=== PATIENT | female | born 1935 | race Hispanic/Latino ===

== ENCOUNTER 2017-07-05 10:14 | Inpatient (IN) | payer MEDICARE, OTHER ==
[~2017-07-05] VITALS: Ht 162.6 cm; Wt 63.5 kg
[~2017-07-05 10:14] MED LIST: ADVAIR 250-501 EACH; ADVAIR 250-501 EACH INH; ADVAIR 250-501 EACH PO; ALBUTEROL0.63 MG/3 NEB; ALENDRONATE SOD70 MG PEG; AMARYL4 MG PO; AMLODIPINE BESYL5 MG PO; ASPIR 8181 MG PO; ASPIRIN EC81 MG PO; AZITHROMYCIN250 MG PO; Albuterol Sulf NEB; BUDESONIDE0.5 MG/2 M NEB; CALCIUM CARBON500 MG PO; CEFDINIR300 MG PO; CIPRO500 MG PO; CLOTRIMAZOLE15 GM PO; COLACE100 M1 PO; DEXILANT60 MG PO; DRISDOL50000 UNIT PO; FLAGYL500 MG PO; GABAPENTIN300 MG PO; GLUCOTROL XL10 MG PO; HYDROCHLOROTHIA25 MG PO; IPRATROPIU0.2 MG/1 M NEB; LEVOCETIRIZINE D5 MG PO; LOSARTAN POTAS100 MG PO; LYRICA50 MG; LYRICA75 MG PO; MAGNESIUM OXID400 MG PO; METFORMIN HCL500 M2 PO; METFORMIN HCL500 MG PO; MIRTAZAPINE15 MG PO; NORVASC5 MG PO; OMEPRAZOLE40 MG PO; PEPCID40 MG PO; POTASSIUM CHLO20 ME1 PO; PRAMIPEXOLE DIHY1 MG PO; PRAVASTATIN SOD40 MG PO; ROPINIROLE HCL0.5 MG PO; SINEMET 25-1001 EACH PO; SODIUM CHLORIDE1 GM PO; SPIRIVA18 MCG INH; SYMBICORT 16010.2 GM; TAMIFLU75 MG PO; TEMAZEPAM15 MG PO; TRAMADOL-ACETAMI1 EA PO; TYLENOL PO; ULTRAM50 MG PO; VALERIAN ROOT100 MG PO; VENTOLIN INH; Z MIRAPEX PO; Z REQUIP PO; Z.0.AMLODIPINE BESYL PO; Z.0.DEXILANT60 MG PO; Z.0.LISINOPRIL10 MG; Z.0.LOSARTAN POTAS10 PO; Z.0.METOPROLOL SUCC5; Z.0.NEURONTIN300 MG PO; Z.0.SINGULAIR10 MG PO; Z.1.HYDROCHLOROTH12. PO; ZALEPLON10 MG PO; ZOFRAN ODT4 MG SL
[2017-07-05] MEDS ORDERED: IPRATROPIUM BROMIDE 0.02% 2.5 ML NEB NEB STA (10:15)
[2017-07-05] MEDS ORDERED: AZITHROMYCIN 500MG/NS 250 ML 250 ML IV SCH (10:15)
[2017-07-05] MEDS ORDERED: SODIUM CHLORIDE 0.9% 1000ML 1,000 ML IV STA (10:15)
[2017-07-05] MEDS ORDERED: PIPER-TAZ 3.375 GM 50 ML IV SCH (10:15)
[2017-07-05] MEDS ORDERED: METHYLPREDNISOLONE SOD SUCC 125 MG/2ML VIAL IV SCH (10:15)
[2017-07-05] MEDS ORDERED: ALBUTEROL SULF 0.083% NEB SOLN 3 ML NEB NEB STA (10:15)
--- OUTSIDE RECORDS SUMMARY | 2017-07-05 10:17 | XMS REPORT ---
Author Author [facility] Address Unknown Phone Unavailable Care Team Providers Care Relations Manager Name Role Phone JENNIFER SHINE Unavailable Unavailable Problems This patient has no known problems. Allergies, Adverse Reactions, Alerts This patient has no known allergies or adverse reactions. Medications This patient has no known medications. Results Test Description Test Time Test Comments Text Results Atomic Results Result Comments CHEST SINGLE (PORTABLE) [place] [address] Patient Name: SLOAN SANCHEZ MR #: [id number] : 1935 Age/Sex: 82/F Req #: [id number] Adm Physician: Ordered by: JENNIFER SHINE MD Report #: [id number] Location: ER Room/Bed: Procedure: [id number] DX/CHEST SINGLE (PORTABLE) Exam Date: 04/06/17 Exam Time: 1345 REPORT STATUS: Signed PROCEDURE: A single AP view of the chest. COMPARISON: [facility], , CHEST XRAY LINE PLACEMENT, 06/20/2016, 18:33. INDICATIONS: REACTION TO MEDICATION FINDINGS: Lines/tubes: None. Lungs: The lungs are well inflated and clear. There is no evidence of pneumonia or pulmonary edema. Pleura: There is no pleural effusion or pneumothorax. Heart and mediastinum: The heart and the mediastinum are unremarkable. Ossification of the aortic arch. Bones: No acute bony abnormality. IMPRESSION: 1. No acute cardiopulmonary disease. Luis Schaefer M.D. Dictated by: Luis Schaefer M.D. on 04/06/2017 at 14: 25 Electronically approved by: Luis Schaefer M.D. on 04/06/2017 at 14:25 Dictated By: AUNDREA SCHAEFER MD, MD 24 Transcribed By: DAWIT on 04/06 142 COPY TO: JENNIFER SHINE MD CT BRAIN WO [place] [address] Patient Name: SLOAN SANCHEZ MR #: [id number] : 1935 Age/Sex: 82/F Req #: [id number] Adm Physician: Ordered by: JENNIFER SHINE MD Report #: [id number] Location: ER Room/Bed: Procedure: [id number] CT/CT BRAIN WO Exam Date: Exam Time: REPORT STATUS: Signed EXAMINATION: Head CT HISTORY: Altered mental status, unresponsive COMPARISON: Head CT on 06/18/2016 TECHNIQUE: Multidetector axial images were obtained without contrast from the foramen magnum to the vertex . The images were reconstructed using brain and bone algorithms. Thin section brain images were reformatted into coronal and sagittal planes. Intravenous contrast: None. Motion/streaking artifact limits the evaluation of the skull base and posterior cranial fossa. FINDINGS: Parenchyma: 1. Unchanged mild chronic microvascular ischemic changes. 2. No mass or hemorrhage. No CT evidence of acute territorial vascular insult. Extra-axial spaces:No abnormal density. No extra-axial fluid collections Brain volume: Mild generalized brain volume loss Ventricles: No hydrocephalus or displacement. Arteries: No density suggestive of thrombus. Dural sinuses: No abnormal density. Extra-axial spaces : No abnormal density. Foramen magnum: No mass, Chiari malformation, or basilar invagination. Sella: No obvious mass. Paranasal/ mastoid sinuses: Minimal mucosal inflammatory thickening of the partially visualized maxillary sinuses Skull/Scalp: No lytic or blastic lesions. No fractures. IMPRESSION: 1. No acute intracranial hemorrhage or cortical infarct. 2. Unchanged mild chronic microvascular ischemic changes. 3. Stable mild generalized brain volume loss. Signed by: Dr. Riky Bush M.D. on 04/06/2017 2:30 PM Dictated By: RIKY BUSH MD 1430 Transcribed By: CECIL on 04/06/17 1430 COPY TO: JENNIFER SHINE MD
[2017-07-05] MEDS ORDERED: SODIUM CHLORIDE 0.9% 1000ML 1,000 ML IV SCH (10:22)
[2017-07-05] MEDS ORDERED: ALBUTEROL SULF 0.083% NEB SOLN 3 ML NEB NEB SCH (10:30)
[2017-07-05] MEDS ORDERED: ZOLPIDEM TARTRATE 10 MG TAB PO PRN (10:30)
[2017-07-05] MEDS ORDERED: DEXTROSE 50% SYRINGE 50 ML IV PRN (10:30)
[2017-07-05 10:38] LABS: BASOPHILS % 0.7 % (0.0-1.0); EOSINOPHILS # (AUTO) 0.1 (0.0-0.4); EOSINOPHILS % 1.7 % (0.0-6.0); HEMOGLOBIN 11.3 g/dL (12.0-16.0); LYMPHOCYTES # (AUTO) 1.7 (1.0-3.2); LYMPHOCYTES % 40.6 % (18.0-39.1); MEAN CORPUSCULAR HEMOGLOBIN 28.2 pg (28-32); MEAN CORPUSCULAR HGB CONC 34.2 g/dL (31-35); MEAN CORPUSCULAR VOLUME 82.3 fL (81-99); MONOCYTES # (AUTO) 0.4 (0.2-0.8); MONOCYTES % 10.5 % (4.4-11.3); NEUTROPHILS # (AUTO) 1.9 (2.1-6.9); NEUTROPHILS % 46.3 % (38.7-80.0); PLATELET COUNT 166 x10e3/uL (140-360); RED BLOOD COUNT 4.01 x10e6/uL (3.6-5.1); RED CELL DISTRIBUTION WIDTH 12.7 % (11.7-14.4)
[2017-07-05 10:48] LABS: INR 1.08; PARTIAL THROMBOPLASTIN TIME 27.6 seconds (23.8-35.5); PROTHROMBIN TIME 13.2 seconds (11.9-14.5)
[2017-07-05 10:56] LABS: ALANINE AMINOTRANSFERASE 30 IU/L (0-55); ALBUMIN 3.4 g/dL (3.5-5.0); ALBUMIN/GLOBULIN RATIO 0.9 (0.8-2.0); ALKALINE PHOSPHATASE 67 IU/L (40-150); ANION GAP 11.7 mmol/L (8-16); BLOOD UREA NITROGEN 16 mg/dL (7-26); BUN/CREATININE RATIO 22 (6-25); CALCIUM 8.8 mg/dL (8.4-10.2); CARBON DIOXIDE 23 mmol/L (22-29); CHLORIDE 99 mmol/L (98-107); CREATINE KINASE 825 IU/L (29-168); CREATININE, SERUM 0.73 mg/dL (0.57-1.11); EST GLOMERULAR FILTRATION RATE > 60 ML/MIN (60-); GLUCOSE 139 mg/dL (74-118); MAGNESIUM 1.7 MG/DL (1.3-2.1); POTASSIUM 3.7 mmol/L (3.5-5.1); SODIUM 130 mmol/L (136-145)
[2017-07-05 11:23] LABS: B-TYPE NATRIURETIC PEPTIDE2 46.6 pg/mL (0-100)
--- NOTE | 2017-07-05 11:29 | Diagnostic Imaging Report ---
PROCEDURE: Frontal and lateral views of the chest. COMPARISON: Portable chest 04/06/2017. INDICATIONS: SOB FINDINGS: Lines/tubes: None. Lungs: Bilateral perihilar opacifications. Low lung volumes are present bilaterally. No parenchymal mass. Pleura: There is no pleural effusion or pneumothorax. Heart and mediastinum: The heart and the mediastinum are normal. Atherosclerotic calcifications. Bones: No acute bony abnormality. Degenerative changes of the thoracic spine. IMPRESSION: Bilateral perihilar opacifications may represent pulmonary edema. Dictated by: Christos Robb M.D. on 07/05/2017 at 11:30 Electronically approved by: Christos Robb M.D. on 07/05/2017 at 11:30
[2017-07-05] MEDS ORDERED: ACETAMINOPHEN 325 MG TAB PO ONE (11:45)
[2017-07-05] MEDS ORDERED: IPRATROPIUM BROMIDE 0.02% 2.5 ML NEB NEB SCH (12:00)
[2017-07-05 12:16] LABS: BAND NEUTROPHILS % (MANUAL) 1 %; BLAST CELLS % MANUAL 1; EOSINOPHILS % (MANUAL) 2 % (0-7); LYMPHOCYTES % (MANUAL) 36 % (19-48); MONOCYTES % (MANUAL) 6 % (3.4-9.0); MYELOCYTES % (MANUAL) 1 % (0-0); NEUTROPHILS % (MANUAL) 48 % (40-74)
[2017-07-05 12:18] LABS: ANISOCYTOSIS SLIGHT; PLATELET ESTIMATE ADEQUATE; PLATELET MORPHOLOGY COMMENT NORMAL; RBC MORPHOLOGY COMMENT NORMAL
[2017-07-05] MEDS ORDERED: TRAMADOL HCL 50 MG TAB PO PRN (12:45)
[2017-07-05] MEDS ORDERED: FUROSEMIDE INJ 10 MG/ML 2 ML VIAL IV ONE (13:00)
[2017-07-05] MEDS: PIPER-TAZ 3.375 GM 100 ML IV SCH ×3 (13:21→22:50)
[2017-07-05] MEDS: INSULIN REGULAR, HUMAN 100 UNIT/1 ML 3ML VIAL SQ SCH ×3 (13:51→21:00)
--- NOTE | 2017-07-05 13:53 | Diagnostic Imaging Report ---
EXAMINATION: Head CT HISTORY: Altered mental status, evaluate for intracranial bleed COMPARISON: Head CT on 04/06/2017 TECHNIQUE: Multidetector axial images were obtained without contrast from the foramen magnum to the vertex . The images were reconstructed using brain and bone algorithms. Thin section brain images were reformatted into coronal and sagittal planes. Intravenous contrast: None. Motion/streaking artifact limits the evaluation of the skull base and posterior cranial fossa. FINDINGS: Parenchyma: 1. Unchanged mild chronic microvascular ischemic changes.. 2. No mass or hemorrhage. No CT evidence of acute territorial vascular insult. Extra-axial spaces:No abnormal density. No extra-axial fluid collections Brain volume: Age-appropriate moderate generalized volume loss. Ventricles: No hydrocephalus or displacement. Arteries: No density suggestive of thrombus. Dural sinuses: No abnormal density. Extra-axial spaces: No abnormal density. Foramen magnum: No mass, Chiari malformation, or basilar invagination. Sella: No obvious mass. Paranasal/mastoid sinuses: Minimal mucosal inflammatory thickening of the partially visualized paranasal sinuses. Skull/Scalp: No lytic or blastic lesions. No fractures. IMPRESSION: 1. No intracranial hemorrhage. 2. Stable mild chronic microvascular ischemic changes. Signed by: Dr. Patti Bush M.D. on 07/05/2017 1:50 PM
[2017-07-05 14:46] LABS: ABG HCO3 22 mmol/L (23-28); ABG PCO2 33 mmHg (41-51); ABG PH 7.42 (7.31-7.41); ABG PO2 68 mmHg (80-105)
[2017-07-05] MEDS ORDERED: OYST-CAL-D 500MG TABLET PO SCH (15:00)
[2017-07-05] MEDS: OYST-CAL-D 500MG TABLET PO SCH ×2 (16:14→21:00)
[2017-07-05] MEDS ORDERED: FUROSEMIDE INJ 10 MG/ML 4 ML VIAL ONE (16:21)
[2017-07-05] MEDS ORDERED: SALMETEROL/FLUTICASONE 250/50 INH SCH (17:00)
[2017-07-05] MEDS ORDERED: GABAPENTIN 300 MG CAP PO SCH (17:00)
[2017-07-05] MEDS: DOCUSATE SODIUM 100 MG CAP PO SCH (17:01)
[2017-07-05 17:29] VITALS: BP 141/65
[2017-07-05 17:35] VITALS: BP 141/65
[2017-07-05 18:37] LABS: CREATINE KINASE 666 IU/L (29-168)
[2017-07-05] MEDS: SALMETEROL/FLUTICASONE 250/50 INH SCH (19:00)
[2017-07-05] MEDS: BUDESONIDE 0.5MG/2 ML NEB NEB SCH (19:45)
[2017-07-05 20:15] VITALS: BP 158/69
[2017-07-05] MEDS: PRAVASTATIN 20 MG TAB PO SCH ×2 (21:00→22:51)
[2017-07-05] MEDS ORDERED: NON-FORMULARY MEDICATION (Pravastatin Sodium 1 TAB) PO SCH (21:00)
[2017-07-06] VITALS (7 sets, daily range): BP systolic 147–165; BP diastolic 66–80
[2017-07-06 04:16] LABS: CREATINE KINASE 588 IU/L (29-168)
[2017-07-06] MEDS ORDERED: SODIUM CHLORIDE 0.9% 250ML 250 ML ONE (05:39)
[2017-07-06] MEDS: PIPER-TAZ 3.375 GM 100 ML IV SCH (05:50)
[2017-07-06 06:08] LABS: BASOPHILS % 0.7 % (0.0-1.0); EOSINOPHILS # (AUTO) 0.1 (0.0-0.4); EOSINOPHILS % 1.6 % (0.0-6.0); HEMOGLOBIN 10.6 g/dL (12.0-16.0); LYMPHOCYTES % 43.7 % (18.0-39.1); MEAN CORPUSCULAR HEMOGLOBIN 28.5 pg (28-32); MEAN CORPUSCULAR HGB CONC 33.1 g/dL (31-35); MONOCYTES # (AUTO) 0.5 (0.2-0.8); MONOCYTES % 10.5 % (4.4-11.3); NEUTROPHILS # (AUTO) 1.9 (2.1-6.9); NEUTROPHILS % 43.3 % (38.7-80.0); PLATELET COUNT 170 x10e3/uL (140-360); RED BLOOD COUNT 3.72 x10e6/uL (3.6-5.1); RED CELL DISTRIBUTION WIDTH 12.9 % (11.7-14.4)
[2017-07-06 06:30] LABS: ALANINE AMINOTRANSFERASE 29 IU/L (0-55); ALBUMIN 3.3 g/dL (3.5-5.0); ALBUMIN/GLOBULIN RATIO 1.1 (0.8-2.0); ALKALINE PHOSPHATASE 59 IU/L (40-150); ANION GAP 12.6 mmol/L (8-16); BLOOD UREA NITROGEN 11 mg/dL (7-26); BUN/CREATININE RATIO 16 (6-25); CALCIUM 8.6 mg/dL (8.4-10.2); CARBON DIOXIDE 25 mmol/L (22-29); CHLORIDE 104 mmol/L (98-107); EST GLOMERULAR FILTRATION RATE > 60 ML/MIN (60-); GLUCOSE 92 mg/dL (74-118); POTASSIUM 3.6 mmol/L (3.5-5.1); SODIUM 138 mmol/L (136-145)
[2017-07-06] MEDS: INSULIN REGULAR, HUMAN 100 UNIT/1 ML 3ML VIAL SQ SCH ×4 (07:30→20:53)
[2017-07-06] MEDS: TIOTROPIUM 18 MCG INH POWDER INH SCH ×2 (08:20→19:20)
[2017-07-06] MEDS: BUDESONIDE 0.5MG/2 ML NEB NEB SCH ×2 (08:20→19:20)
[2017-07-06 08:29] LABS: LYMPHOCYTES % (MANUAL) 42 % (19-48); MONOCYTES % (MANUAL) 9 % (3.4-9.0); NEUTROPHILS % (MANUAL) 45 % (40-74)
[2017-07-06 08:30] LABS: ANISOCYTOSIS SLIGHT; HYPOCHROMASIA SLIGHT; PLATELET ESTIMATE ADEQUATE; PLATELET MORPHOLOGY COMMENT NORMAL; POIKILOCYTOSIS SLIGHT; RBC MORPHOLOGY COMMENT NORMAL
--- NOTE | 2017-07-06 09:02 | History and Physical ---
CHIEF COMPLAINT: Dyspnea and congestion. HISTORY OF PRESENT ILLNESS: The patient is an 82-year-old woman. She has a history of severe COPD. She uses inhalers at home. She uses oxygen at home. She also has Parkinson disease and restless legs syndrome. She takes Sinemet and Mirapex at home as well. She complains of fever for the past 1 to 2 days. She has worsening dyspnea and congestion. It was not relieved with bronchodilators, steroids and antibiotics as an outpatient. PAST MEDICAL HISTORY 1. COPD. 2. Parkinson disease. 3. Restless legs syndrome. 4. Hypertension. PAST SURGICAL HISTORY 1. Status post ventral hernia repair. 2. Status post left hip surgery. 3. Hysterectomy. FAMILY HISTORY: There is a history of hypertension and diabetes in the family. SOCIAL HISTORY: The patient stays at home. She has help from her family. She is not a smoker or drinker. REVIEW OF SYSTEMS: The patient does not have any fever. There is no headache. The patient is not having any sore throat. There is no chest pain. She does have dyspnea and congestion. She does not complain of abdominal pain. She notes frequent leg movements and some restlessness. PHYSICAL EXAMINATION VITALS: The patient is afebrile. The vital signs are stable. HEENT: No facial swelling or erythema. The nasal mucosa is normal. The oropharynx is normal. LYMPHATIC: No submandibular, cervical or supraclavicular adenopathy. CARDIAC: Regular rate and rhythm with a normal S1 and S2. There are no murmurs or rubs. LUNGS: Auscultation of the lungs reveals prolonged expiratory phase. There is wheezing. ABDOMEN: Soft and nontender. There is no rebound or guarding. EXTREMITIES: No leg edema or calf tenderness. There is no cyanosis or clubbing. SKIN: No rashes. NEUROLOGIC: No focal abnormalities. IMPRESSION 1. Chronic obstructive pulmonary disease with acute exacerbation. 2. Fever. 3. Parkinson disease. 4. Restless legs syndrome. PLAN 1. Solu-Medrol and antibiotics. 2. Bronchodilators. 3. Continue current parkinsonian regimen. Consult neurology. 4. Physical therapy. LAYO GUPTA MD Job#: [id number] MH
[2017-07-06] MEDS: AZITHROMYCIN 500MG/NS 250 ML 250 ML IV SCH (09:52)
[2017-07-06] MEDS: PRAMIPEXOLE DIHYDROCHLORIDE 1 MG TAB PO SCH (09:53)
[2017-07-06] MEDS: DOCUSATE SODIUM 100 MG CAP PO SCH ×2 (09:53→17:00)
[2017-07-06] MEDS: ASPIRIN 81 MG CHEW TAB PO SCH (09:53)
[2017-07-06] MEDS: LOSARTAN POTASSIUM 100 MG TAB PO SCH (09:53)
[2017-07-06] MEDS: CARBIDOPA/LEVODOPA 25/100 TAB PO SCH ×3 (09:53→20:52)
[2017-07-06] MEDS: PANTOPRAZOLE SOD 40 MG TABEC PO SCH (09:53)
[2017-07-06] MEDS: OYST-CAL-D 500MG TABLET PO SCH ×3 (09:53→20:52)
[2017-07-06] MEDS: MIRTAZAPINE 15 MG TAB PO SCH (09:53)
[2017-07-06] MEDS: ROPINIROLE HCL 0.25 MG TAB PO SCH ×2 (09:53→17:00)
[2017-07-06] MEDS: AMLODIPINE BESYLATE 5 MG TAB PO SCH (09:53)
[2017-07-06] MEDS ORDERED: METHYLPREDNISOLONE SOD SUCC 40 MG/ML VIAL ONE ×2 (10:21→10:29)
[2017-07-06] MEDS: METHYLPREDNISOLONE SOD SUCC 40 MG/ML VIAL IV SCH ×2 (10:29→20:52)
--- NOTE | 2017-07-06 18:03 | Consultation ---
DATE OF CONSULTATION: July 06, 2017, at approximately 5 o'clock in the evening. NEUROLOGICAL CONSULTATION A patient of Dr. Martin Mchugh. REASON FOR CONSULTATION: History of Parkinson. HISTORY OF PRESENT ILLNESS: This 82-year-old female is well known to me from previous admission. Patient was admitted because of coughing, febrile illness, shortness of breath. She was brought to the emergency room and admitted with a diagnosis of pneumonia. She has history of COPD, Parkinson disease, restless legs syndrome, hypertension. She has history of post left knee surgery, hysterectomy, and ventral hernia. SOCIAL HISTORY: The patient lives with the family. She does not smoke or drink. LIST OF MEDICATION: She has been on carbidopa-levodopa 25/100 three times a day and Requip (ropinirole) 0.5 mg twice a day for the restless legs syndrome and also for Parkinson's. ALLERGIES: NONE KNOWN. REVIEW OF SYSTEMS: All 12 steps negative except what is described above. PHYSICAL EXAMINATION VITAL SIGNS: Blood pressure today is 164/73, pulse 87, temperature 93.7. GENERAL: The patient states she is feeling much better. LUNGS: Still bilateral rales and wheezing. HEART: Regular sinus rhythm. ABDOMEN: Soft. No tenderness. No organomegaly. MUSCULOSKELETAL: Lower extremities no edema, no cyanosis, no clubbing. NEUROLOGIC Mental status: Normal. Speech clear, no dysarthria or dysphagia. Cranial nerves: Pupils were both equal and reactive. External ocular movements were full. Visual field was normal. No facial weakness. Tongue protrudes midline. Palatal movements normal. Motor power: Patient is sitting comfortably. We see a fine resting tremor in both hands, a little more on the right side, 4-6 Hz, which is absent during postural holding. There is no evidence of muscle wasting. No weakness in either proximal or distal muscles of either or both upper or lower extremities. Deep tendon reflexes: Triceps, biceps, radials 1+. Knee jerks 1+. Ankle jerks were absent bilaterally. Plantar stimulation is down bilaterally. HEAD: Normocephalic. NECK: Supple. Carotid pulsations were present bilaterally. There were no bruits. GAIT: Deferred. LABORATORY WORKUP: CBC shows a white count 4400 with a hemoglobin 10.3, hematocrit 32, platelets 170,000. Chemistry: Sodium 138, potassium 3.6, BUN 11, creatinine 0.70, estimated GFR greater than 60, blood sugar 195. Liver enzymes: The AST is slightly elevated. Chest x-ray: Bilateral perihilar opacification may represent pulmonary edema. They did a CT scan of the head without contrast in the emergency room. There is intracranial pathology. Still mild chronic microvascular ischemic changes bilaterally. IMPRESSION 1. Parkinson disease without complications. 2. Restless legs syndrome. 3. Chronic obstructive pulmonary disease. 4. Hypertension. RECOMMENDATION: Continue with carbidopa-levodopa 25/100 and the Requip 0.5 mg twice a day. He seems to be quite stable with the above medication. Will follow closely. Job#: [id number] EV
[2017-07-06] MEDS: SALMETEROL/FLUTICASONE 250/50 INH SCH (19:20)
[2017-07-06] MEDS: IPRATROPIUM BROMIDE 0.02% 2.5 ML NEB NEB PRN (19:20)
[2017-07-06] MEDS: ALBUTEROL SULF 0.083% NEB SOLN 3 ML NEB NEB PRN (19:20)
[2017-07-06] MEDS: FUROSEMIDE INJ 10 MG/ML 4 ML VIAL IV SCH (20:52)
[2017-07-07 00:44] VITALS: BP 149/69
[2017-07-07 06:17] VITALS: BP 136/63
[2017-07-07 06:57] LABS: BASOPHILS % 0.3 % (0.0-1.0); LYMPHOCYTES # (AUTO) 1.3 (1.0-3.2); LYMPHOCYTES % 39.2 % (18.0-39.1); MEAN CORPUSCULAR HEMOGLOBIN 28.5 pg (28-32); MEAN CORPUSCULAR HGB CONC 34.9 g/dL (31-35); MEAN CORPUSCULAR VOLUME 81.8 fL (81-99); MONOCYTES # (AUTO) 0.2 (0.2-0.8); MONOCYTES % 7.2 % (4.4-11.3); NEUTROPHILS # (AUTO) 1.7 (2.1-6.9); NEUTROPHILS % 52.7 % (38.7-80.0); PLATELET COUNT 217 x10e3/uL (140-360); RED BLOOD COUNT 4.28 x10e6/uL (3.6-5.1); RED CELL DISTRIBUTION WIDTH 12.6 % (11.7-14.4)
[2017-07-07 07:08] LABS: HEMOGLOBIN 12.2 g/dL (12.0-16.0)
[2017-07-07 07:13] LABS: MAGNESIUM 1.6 MG/DL (1.3-2.1)
[2017-07-07 07:19] LABS: ALANINE AMINOTRANSFERASE 25 IU/L (0-55); ALBUMIN 3.5 g/dL (3.5-5.0); ALBUMIN/GLOBULIN RATIO 0.8 (0.8-2.0); ALKALINE PHOSPHATASE 69 IU/L (40-150); ANION GAP 14.6 mmol/L (8-16); BLOOD UREA NITROGEN 11 mg/dL (7-26); BUN/CREATININE RATIO 14 (6-25); CALCIUM 9.3 mg/dL (8.4-10.2); CARBON DIOXIDE 24 mmol/L (22-29); CHLORIDE 98 mmol/L (98-107); CREATININE, SERUM 0.78 mg/dL (0.57-1.11); EST GLOMERULAR FILTRATION RATE > 60 ML/MIN (60-); GLUCOSE 249 mg/dL (74-118); POTASSIUM 3.6 mmol/L (3.5-5.1); SODIUM 133 mmol/L (136-145)
[2017-07-07] MEDS: IPRATROPIUM BROMIDE 0.02% 2.5 ML NEB NEB PRN ×3 (07:20→19:15)
[2017-07-07] MEDS: BUDESONIDE 0.5MG/2 ML NEB NEB SCH ×2 (07:20→19:15)
[2017-07-07] MEDS: ALBUTEROL SULF 0.083% NEB SOLN 3 ML NEB NEB PRN ×3 (07:20→19:15)
[2017-07-07 07:34] LABS: FERRITIN 55.09 ng/mL (4.63-204.00)
[2017-07-07] MEDS: SALMETEROL/FLUTICASONE 250/50 INH SCH ×2 (07:40→19:15)
[2017-07-07 08:00] VITALS: BP 171/74
[2017-07-07] MEDS: TIOTROPIUM 18 MCG INH POWDER INH SCH ×2 (08:01→19:15)
[2017-07-07] MEDS: ASPIRIN 81 MG CHEW TAB PO SCH (10:11)
[2017-07-07] MEDS: DOCUSATE SODIUM 100 MG CAP PO SCH ×2 (10:11→17:25)
[2017-07-07] MEDS: FUROSEMIDE INJ 10 MG/ML 4 ML VIAL IV SCH (10:11)
[2017-07-07] MEDS: AZITHROMYCIN 500MG/NS 250 ML 250 ML IV SCH (10:11)
[2017-07-07] MEDS: METHYLPREDNISOLONE SOD SUCC 40 MG/ML VIAL IV SCH ×2 (10:11→22:05)
[2017-07-07] MEDS: CARBIDOPA/LEVODOPA 25/100 TAB PO SCH ×3 (10:12→22:05)
[2017-07-07] MEDS: MIRTAZAPINE 15 MG TAB PO SCH (10:12)
[2017-07-07] MEDS: PANTOPRAZOLE SOD 40 MG TABEC PO SCH (10:12)
[2017-07-07] MEDS: ROPINIROLE HCL 0.25 MG TAB PO SCH ×2 (10:12→17:25)
[2017-07-07] MEDS: LOSARTAN POTASSIUM 100 MG TAB PO SCH (10:12)
[2017-07-07] MEDS: AMLODIPINE BESYLATE 5 MG TAB PO SCH (10:12)
[2017-07-07] MEDS: OYST-CAL-D 500MG TABLET PO SCH ×3 (10:12→22:05)
[2017-07-07] MEDS: PRAMIPEXOLE DIHYDROCHLORIDE 1 MG TAB PO SCH (10:12)
[2017-07-07] MEDS: INSULIN REGULAR, HUMAN 100 UNIT/1 ML 3ML VIAL SQ SCH ×4 (10:13→22:05)
[2017-07-07 10:27] LABS: ANISOCYTOSIS SLIGHT; LYMPHOCYTES % (MANUAL) 28 % (19-48); MONOCYTES % (MANUAL) 7 % (3.4-9.0); NEUTROPHILS % (MANUAL) 57 % (40-74); PLATELET ESTIMATE ADEQUATE; PLATELET MORPHOLOGY COMMENT FEW GIANT; RBC MORPHOLOGY COMMENT NORMAL
[2017-07-07 12:00] VITALS: BP 152/91
[2017-07-07] MEDS ORDERED: LORAZEPAM 0.5 MG TAB PO ONE ×2 (14:00→17:30)
[2017-07-07 16:00] VITALS: BP 125/60
--- NOTE | 2017-07-07 18:56 | Progress Note ---
DATE: July 07, 2017 NEUROLOGICAL PROGRESS NOTE A patient of Dr. Sergey Torres. DIAGNOSIS 1. Parkinson disease without complication. 2. Restless legs syndrome. 3. Chronic obstructive pulmonary disease. 4. Pneumonia. 5. Hypertension. MEDICATION: She has been on carbidopa-levodopa 25/100 three times a day and Requip 0.5 mg 3 times a day. Parkinson and the restless legs seem to be under control, the Parkinson's resting tremor of 4-6 Hz mild to moderate intensity. Patient is able to do all her daily living activities. At the present time she is feeling better with the pneumonia and possibility she is going to be discharged tomorrow. Vital signs were stable. Job#: [id number] EV
[2017-07-07 20:00] VITALS: BP 138/60
[2017-07-08] VITALS: BP 134/46
[2017-07-08 04:55] VITALS: BP 139/73
[2017-07-08 06:34] LABS: HEMATOCRIT 34.2 % (34.2-44.1); HEMOGLOBIN 11.4 g/dL (12.0-16.0); LYMPHOCYTES % 19.2 % (18.0-39.1); MEAN CORPUSCULAR HGB CONC 33.3 g/dL (31-35); MONOCYTES # (AUTO) 0.2 (0.2-0.8); MONOCYTES % 3.3 % (4.4-11.3); NEUTROPHILS # (AUTO) 3.9 (2.1-6.9); NEUTROPHILS % 77.1 % (38.7-80.0); PLATELET COUNT 238 x10e3/uL (140-360); RED BLOOD COUNT 4.07 x10e6/uL (3.6-5.1); RED CELL DISTRIBUTION WIDTH 12.6 % (11.7-14.4)
[2017-07-08 06:56] LABS: ALANINE AMINOTRANSFERASE 25 IU/L (0-55); ALBUMIN 3.6 g/dL (3.5-5.0); ALBUMIN/GLOBULIN RATIO 0.9 (0.8-2.0); ALKALINE PHOSPHATASE 62 IU/L (40-150); ANION GAP 15.7 mmol/L (8-16); BLOOD UREA NITROGEN 17 mg/dL (7-26); BUN/CREATININE RATIO 22 (6-25); CALCIUM 9.4 mg/dL (8.4-10.2); CARBON DIOXIDE 22 mmol/L (22-29); CHLORIDE 98 mmol/L (98-107); CREATININE, SERUM 0.77 mg/dL (0.57-1.11); EST GLOMERULAR FILTRATION RATE > 60 ML/MIN (60-); GLUCOSE 153 mg/dL (74-118); POTASSIUM 3.7 mmol/L (3.5-5.1); SODIUM 132 mmol/L (136-145)
[2017-07-08] MEDS: SALMETEROL/FLUTICASONE 250/50 INH SCH (07:15)
[2017-07-08] MEDS: ALBUTEROL SULF 0.083% NEB SOLN 3 ML NEB NEB PRN (07:15)
[2017-07-08] MEDS: IPRATROPIUM BROMIDE 0.02% 2.5 ML NEB NEB PRN (07:15)
[2017-07-08] MEDS: BUDESONIDE 0.5MG/2 ML NEB NEB SCH (07:15)
[2017-07-08 08:00] VITALS: BP 168/74
[2017-07-08] MEDS: TIOTROPIUM 18 MCG INH POWDER INH SCH (08:48)
[2017-07-08] MEDS ORDERED: FUROSEMIDE INJ 10 MG/ML 4 ML VIAL IV SCH (09:00)
[2017-07-08] MEDS: PANTOPRAZOLE SOD 40 MG TABEC PO SCH (10:05)
[2017-07-08] MEDS: ASPIRIN 81 MG CHEW TAB PO SCH (10:05)
[2017-07-08] MEDS: DOCUSATE SODIUM 100 MG CAP PO SCH (10:05)
[2017-07-08] MEDS: LOSARTAN POTASSIUM 100 MG TAB PO SCH (10:05)
[2017-07-08] MEDS: AZITHROMYCIN 500MG/NS 250 ML 250 ML IV SCH (10:05)
[2017-07-08] MEDS: PRAMIPEXOLE DIHYDROCHLORIDE 1 MG TAB PO SCH (10:05)
[2017-07-08] MEDS: METHYLPREDNISOLONE SOD SUCC 40 MG/ML VIAL IV SCH (10:05)
[2017-07-08] MEDS: OYST-CAL-D 500MG TABLET PO SCH (10:05)
[2017-07-08] MEDS: AMLODIPINE BESYLATE 5 MG TAB PO SCH (10:05)
[2017-07-08] MEDS: CARBIDOPA/LEVODOPA 25/100 TAB PO SCH (10:06)
[2017-07-08] MEDS: ROPINIROLE HCL 0.25 MG TAB PO SCH (10:06)
[2017-07-08] MEDS: MIRTAZAPINE 15 MG TAB PO SCH (10:06)
[2017-07-08] MEDS: INSULIN REGULAR, HUMAN 100 UNIT/1 ML 3ML VIAL SQ SCH (10:26)
== END 2017-07-08 11:35 | disposition home or self-care (01) | DRG 190 ==
LOC: ER 10:14 → EDBEDREQ 11:00 → ERHOLD 11:47 → MED/SURG2 15:59
PROVIDERS: ATTEND Internal Medicine Critical Care Medicine
DX: J44.1 Chronic obstructive pulmonary disease with (acute) exacerbation (principal); J15.9 Unspecified bacterial pneumonia; G25.81 Restless legs syndrome; G20 Parkinson's disease; I10 Essential (primary) hypertension
CPT/HCPCS: 36415; 36600; 51700; 70450; 71046; 80053; 82550; 82553; 82728; 82805; 82948; 83605; 83735; 83880; 84484; 85025; 85379; 85610; 85730; 87040; 87400; 93005; 94640; 96360; 99284; J0456; J1940; J2543; J2920; J7030; J7050

== ENCOUNTER 2018-06-26 18:51 | Emergency (ER) | payer MEDICARE, OTHER ==
[~2018-06-26] VITALS: Ht 162.6 cm; Wt 63.5 kg
[2018-06-26] MEDS ORDERED: ALBUTEROL/IPRATROPIUM 3 ML NEB NEB ONE ×2 (19:15→23:15)
--- NOTE | 2018-06-26 19:42 | Diagnostic Imaging Report ---
EXAMINATION: CHEST 2 VIEWS INDICATION: Shortness of breath ^SOB ^[id number] ^[id number] COMPARISON: 06/18/2016 FINDINGS: TUBES and LINES: None. LUNGS: Lungs are well inflated. Lungs are clear. There is no evidence of pneumonia or pulmonary edema. PLEURA: No pleural effusion or pneumothorax. HEART AND MEDIASTINUM: The cardiomediastinal silhouette is unremarkable. Atherosclerotic calcifications of the aortic arch. BONES AND SOFT TISSUES: No acute osseous lesion. Soft tissues are unremarkable. UPPER ABDOMEN: No free air under the diaphragm. IMPRESSION: No acute thoracic abnormality. Signed by: Dr. Alejandro Arambula M.D. on 06/26/2018 7:39 PM
[2018-06-26 19:46] LABS: BASOPHILS # (AUTO) 0.1 (0.0-0.1); BASOPHILS % 0.9 % (0.0-1.0); EOSINOPHILS # (AUTO) 0.1 (0.0-0.4); EOSINOPHILS % 2.2 % (0.0-6.0); HEMATOCRIT 34.2 % (34.2-44.1); LYMPHOCYTES # (AUTO) 2.1 (1.0-3.2); LYMPHOCYTES % 37.6 % (18.0-39.1); MEAN CORPUSCULAR HEMOGLOBIN 28.3 pg (28-32); MEAN CORPUSCULAR HGB CONC 32.2 g/dL (31-35); MEAN CORPUSCULAR VOLUME 87.9 fL (81-99); MONOCYTES # (AUTO) 0.5 (0.2-0.8); MONOCYTES % 8.2 % (4.4-11.3); NEUTROPHILS # (AUTO) 2.8 (2.1-6.9); NEUTROPHILS % 50.7 % (38.7-80.0); PLATELET COUNT 212 x10e3/uL (140-360); RED BLOOD COUNT 3.89 x10e6/uL (3.6-5.1); RED CELL DISTRIBUTION WIDTH 13.1 % (11.7-14.4)
[2018-06-26 19:53] LABS: INR 0.88; PROTHROMBIN TIME 12.4 seconds (11.9-14.5)
[2018-06-26 19:54] LABS: PARTIAL THROMBOPLASTIN TIME 27.8 seconds (23.8-35.5)
[2018-06-26 20:06] LABS: ALANINE AMINOTRANSFERASE 19 IU/L (0-55); ALBUMIN 3.8 g/dL (3.5-5.0); ALBUMIN/GLOBULIN RATIO 1.1 (0.8-2.0); ALKALINE PHOSPHATASE 87 IU/L (40-150); ANION GAP 14.6 mmol/L (8-16); BLOOD UREA NITROGEN 18 mg/dL (7-26); BUN/CREATININE RATIO 20 (6-25); CALCIUM 9.9 mg/dL (8.4-10.2); CARBON DIOXIDE 25 mmol/L (22-29); CHLORIDE 100 mmol/L (98-107); CREATINE KINASE 233 IU/L (29-168); CREATININE, SERUM 0.89 mg/dL (0.57-1.11); EST GLOMERULAR FILTRATION RATE > 60 ML/MIN (60-); GLUCOSE 213 mg/dL (74-118); POTASSIUM 3.6 mmol/L (3.5-5.1); SODIUM 136 mmol/L (136-145)
[2018-06-26] MEDS ORDERED: ACETAMINOPHEN 325 MG TAB PO ONE (23:15)
[2018-06-26 23:55] VITALS: BP 138/57
== END 2018-06-27 00:02 | disposition home or self-care (01) ==
LOC: ER 18:51
DX: J30.1 Allergic rhinitis due to pollen (principal); I10 Essential (primary) hypertension; E11.9 Type 2 diabetes mellitus without complications; J44.9 Chronic obstructive pulmonary disease, unspecified; I25.10 Atherosclerotic heart disease of native coronary artery without angina pectoris; K21.9 Gastro-esophageal reflux disease without esophagitis; E78.00 Pure hypercholesterolemia, unspecified; G47.30 Sleep apnea, unspecified; I25.2 Old myocardial infarction; Z79.84 Long term (current) use of oral hypoglycemic drugs; Z79.82 Long term (current) use of aspirin
CPT/HCPCS: 36415; 71046; 80053; 82550; 82553; 83880; 84484; 85025; 85610; 85730; 93005; 94640; 99283

== ENCOUNTER → 2018-08-17 | Day surgery (SDC) | payer MEDICARE, OTHER ==
[2018-08-15 10:17] LABS: BASOPHILS # (AUTO) 0.1 (0.0-0.1); EOSINOPHILS # (AUTO) 0.2 (0.0-0.4); EOSINOPHILS % 3.7 % (0.0-6.0); HEMATOCRIT 34.1 % (34.2-44.1); HEMOGLOBIN 11.1 g/dL (12.0-16.0); LYMPHOCYTES # (AUTO) 1.9 (1.0-3.2); LYMPHOCYTES % 30.7 % (18.0-39.1); MEAN CORPUSCULAR HEMOGLOBIN 27.3 pg (28-32); MEAN CORPUSCULAR HGB CONC 32.6 g/dL (31-35); MEAN CORPUSCULAR VOLUME 83.8 fL (81-99); MONOCYTES # (AUTO) 0.7 (0.2-0.8); MONOCYTES % 10.6 % (4.4-11.3); NEUTROPHILS # (AUTO) 3.4 (2.1-6.9); NEUTROPHILS % 53.7 % (38.7-80.0); PLATELET COUNT 208 x10e3/uL (140-360); RED BLOOD COUNT 4.07 x10e6/uL (3.6-5.1); RED CELL DISTRIBUTION WIDTH 13.2 % (11.7-14.4)
[2018-08-15 10:26] LABS: INR 0.95; PROTHROMBIN TIME 13.2 seconds (11.9-14.5)
[2018-08-15 10:33] LABS: ALANINE AMINOTRANSFERASE 26 IU/L (0-55); ALBUMIN 3.8 g/dL (3.5-5.0); ALBUMIN/GLOBULIN RATIO 1.1 (0.8-2.0); ALKALINE PHOSPHATASE 96 IU/L (40-150); ANION GAP 11.5 mmol/L (8-16); BLOOD UREA NITROGEN 31 mg/dL (7-26); BUN/CREATININE RATIO 37 (6-25); CALCIUM 9.4 mg/dL (8.4-10.2); CARBON DIOXIDE 27 mmol/L (22-29); CHLORIDE 96 mmol/L (98-107); CREATININE, SERUM 0.83 mg/dL (0.57-1.11); EST GLOMERULAR FILTRATION RATE > 60 ML/MIN (60-); GLUCOSE 167 mg/dL (74-118); POTASSIUM 3.5 mmol/L (3.5-5.1); SODIUM 131 mmol/L (136-145)
--- NOTE | 2018-08-15 10:47 | Diagnostic Imaging Report ---
EXAMINATION: PA and lateral views of the chest. COMPARISON: 06/26/2018 CLINICAL HISTORY: Preoperative study for heart catheterization DISCUSSION: Lungs are well-inflated and without focal consolidation, pleural effusion, or pneumothorax. Mild prominence of the pulmonary interstitium likely reflects age-related fibrotic change. Tortuous thoracic aorta with atherosclerotic calcification. Normal heart size. No acute osseous abnormality. IMPRESSION: No acute cardiopulmonary abnormalities. Signed by: Dr. Matty Zhang M.D. on 08/15/2018 10:43 AM
[~2018-08-17] VITALS: Ht 162.6 cm; Wt 63.5 kg
[2018-08-17] VITALS (10 sets, daily range): BP systolic 109–141; BP diastolic 44–77
[~2018-08-17] MED LIST changes: -ALENDRONATE SOD70 MG PEG; +ALENDRONATE SOD70 MG PO; +ARICEPT5 MG PO; +FENTANYL CITRATE/PF 100MCG/2 ML INJ ONE; +FUROSEMIDE40 MG PO; +HEPARIN SOD (PORCINE) 1000 UNIT/ML 30ML ONE; +HEPARIN SOD/SOD CHLORIDE 2,000 ML ONE; +HYDROCHLOROTH12.5 MG PO; +IOPAMIDOL 370 MG/ML 200 ML INFUS..BTL INJ ONE; +LIDOCAINE HCL 2% LOCAL 20 ML VIAL ONE; +LORAZEPAM0.5 MG PO; +METOPROLOL TART25 MG PO; +MIDAZOLAM HCL 2 MG/2 ML VIAL ONE; +MYRBETRIQ25 MG PO; +NITROGLYCERIN/D5W 200 MCG/ML 250 ML ONE; +POTASSIUM CHLO10 ME1 PO; +SODIUM CHLORIDE 0.9% 1000ML 1,000 ML ONE; +VERAPAMIL HCL 2.5 MG/ML 2 ML VIAL ONE
--- NOTE | 2018-08-17 08:10 | NUR ---
0810am Received pt from [facility] report from Saurabh Puckett.Identifierx2 .No fix. [facility] Dr Mchugh.Rt TR band failed approach. Rt Mynx closure intact.No hematoma or bleeding. Denies CP or SOB No gross issues pain pallor pressure or dysrhythmia Daughter here Franc[place] daughter Reviewed POC and has copies.Patient back to baseline orientation. Respiration shallow and regular. Abdomen soft and non tender. Denies Necessity to defecate or urinate. Bilateral femoral pulses present Left iv infusing at 100cchr NO s/s infiltration. Ok to reduce air TR band at 905am for potential dc at 105 Family at bedside, assisting with po intake.No gross issues pain pallor pressure or dysthymia. ds/ray
--- OUTSIDE RECORDS SUMMARY | 2018-08-17 09:47 | XMS REPORT | Continuity of Care Document ---
Author Author [facility] Interface Address Unknown Phone Unavailable Problems Problem Status Onset Date Classification Date Reported Comments Source Diabetes Active 10/26/2015 Problem 06/27/[address] [facility] Diarrhea Active 10/26/2015 Problem 06/27/[address] [facility] Hypokalemia Active 10/26/2015 Problem 06/27/[address] [facility] Vomiting Active 10/26/2015 Problem 06/27/[address] [facility] Abdominal pain Active 07/17/2015 Problem 06/27/[address] [facility] Fever Active 07/17/2015 Problem 06/27/[address] [facility] Hyponatremia Active 07/17/2015 Problem 06/27/[address] [facility] Weakness Active 07/17/2015 Problem 06/27/[address] [facility] Pneumonia Active 02/23/2014 Problem 06/27/[address] [facility] Reactive airway disease Active 02/23/2014 Problem 06/27/[address] [facility] Bronchitis Active Problem 06/27/[address] [facility] COPD exacerbation Active Problem 06/27/[address] [facility] Dehydration Active Problem 06/27/[address] [facility] Medications Medication Details Route Status Patient Instructions Ordering Provider Order Date Source Temazepam 15 Mg Capsule, 15 Mg Oral Bedtime Active 04/10/[address] [facility] Zaleplon 10 Mg Capsule, 10 Mg Oral Bedtime Active 04/10/[address] [facility] Docusate Sodium (Colace) 100 Mg Capsule Twice A Day Active [place] 04/09/[address] [facility] Gabapentin 300 Mg Capsule Twice A Day Active [place] 04/09/[address] [facility] Gabapentin 300 Mg Capsule, 300 Mg Oral Daily Active 04/09/[address] [facility] Hydrochlorothiazide 25 Mg Tablet, 12.5 Mg Oral Daily Active 04/09/[address] [facility] Dexlansoprazole (Dexilant) 60 Mg Cap., 60 Mg Oral Daily Active 04/06/[address] [facility] Glimepiride (Amaryl) 4 Mg Tablet, 4 Mg Oral Twice A Day Active 04/06/[address] [facility] Losartan Potassium 100 Mg Tablet, 100 Mg Oral Daily Active 04/06/[address] [facility] Ergocalciferol (Drisdol) 50,000 Unit Cap, 61406 Units Oral Weekly Active 06/18/[address] [facility] Pregabalin (Lyrica) 75 Mg Cap, 100 Mg Oral Twice A Day Active 06/18/[address] [facility] Temazepam 15 Mg Capsule, 15 Mg Oral Bedtime as needed for Insomnia Active 06/18/[address] [facility] Azithromycin (Z-Shmuel) 250 Mg Tablet, 250 Mg Oral Use As Directed Active 04/05/[address] [facility] Albuterol (Ventolin-Hfa) 8 Gm Aers, 8 Gm Inhalation As Needed Active 02/06/[address] [facility] Aspirin (Aspirin Ec) 81 Mg Tablet., 81 Mg Oral Daily Active 02/06/[address] [facility] Budesonide/Formoterol Fumarate (Symbicort 160-4.5 Mcg Inhaler) 10.2 Gm Hfa.aer.ad, Active 02/06/[address] [facility] Cefdinir (Omnicef) 300 Mg Capsule, 300 Mg Oral Every 12 Hours Active 02/06/[address] [facility] Fluticasone/Salmeterol (Advair 250-50 Diskus) 1 Each Disk.w.dev, 1 Inh Inhalation Twice A Day Active 02/06/[address] [facility] Montelukast Sodium (Singulair) 10 Mg Tablet, 10 Mg Oral Bedtime Active 02/06/[address] [facility] Ondansetron (Zofran Odt) 4 Mg Tab.rapdis, 4 Mg Sublingual Every 4 Hours as needed for Nausea Active 02/06/[address] [facility] Ropinirole Hcl 0.5 Mg Tablet, 1.5 Mg Oral Bedtime Active 02/06/[address] [facility] Tramadol/Acetaminophen (Tramadol-Acetaminophn 37.5-325) 1 Ea Tab, 37.5325 Mg Oral As Needed Active 02/06/[address] [facility] Budesonide 0.5 Mg/2 Ml Ampul.neb, 2 Ml Nebullizer Active 12/16/[address] [facility] Dexlansoprazole (Dexilant) 60 Mg Cap., 60 Mg Oral Daily Active 12/16/[address] [facility] Famotidine (Pepcid) 40 Mg Tablet, 40 Mg Oral Daily Active 12/16/[address] [facility] Fluticasone/Salmeterol (Advair 250-50 Diskus) 1 Each Disk.w.dev, Active 12/16/[address] [facility] Glipizide (Glucotrol Xl) 10 Mg Tab.er.24, 5 Mg Oral Daily Active 12/16/[address] [facility] Losartan Potassium 100 Mg Tablet, 100 Mg Oral Daily Active 12/16/[address] [facility] Metformin Hcl 500 Mg Tablet, 500 Mg Oral Twice A Day Active 12/16/[address] [facility] Pravastatin Sodium 40 Mg Tablet, 40 Mg Oral Bedtime Active 12/16/[address] [facility] Pregabalin (Lyrica) 50 Mg Cap, 100 Mg Twice A Day Active 12/16/[address] [facility] Temazepam 15 Mg Capsule, 15 Mg Oral Bedtime as needed for Sleep Active 12/16/[address] [facility] Tiotropium [place] (Spiriva) 18 Mcg Cap.w.dev, 18 Mcg Inhalation Daily Active 12/16/[address] [facility] Albuterol Sulf 3 Ml Neb, 3 Ml Nebullizer Rt Q6h Active [place] 10/29/[address] [facility] Ciprofloxacin Hcl (Cipro) 500 Mg Tablet, 500 Mg Oral Twice A Day Active [place] 10/29/[address] [facility] Magnesium Oxide 400 Mg Tablet, 400 Mg Oral Four Times Daily Active [place] 10/29/[address] [facility] Metronidazole (Flagyl) 500 Mg Tablet, 500 Mg Oral Three Times A Day Active [place] 10/29/[address] [facility] Hydrochlorothiazide 25 Mg Tablet, 12.5 Mg Oral Daily Active 07/19/[address] [facility] Amlodipine Besylate (Norvasc) 5 Mg Tab, 5 Mg Oral Daily Active 02/14/[address] [facility] Carbidopa/Levodopa (Sinemet 25-100 Mg Tablet) 1 Each Tablet, 1 Tab Oral Three Times Daily With Meals Active 02/14/[address] [facility] Pramipexole Di-Hcl (Mirapex) 0.5 Mg Tablet, 0.5 Mg Oral Bedtime Active 02/14/[address] [facility] Amlodipine Besylate 5 Mg Tablet, 10 Mg Oral Daily Active 03/03/[address] [facility] Losartan Potassium 100 Mg Tablet, 100 Mg Oral Daily Active 03/03/[address] [facility] Oseltamivir Phosphate (Tamiflu) 75 Mg Cap, 1 Tab Oral Twice A Day Active 03/03/[address] [facility] Gabapentin (Neurontin) 300 Mg Capsule, 300 Mg Oral Twice A Day Active 10/12/[address] [facility] Hydrochlorothiazide 12.5 Mg Tablet, 12.5 Mg Oral Daily Active 10/12/[address] [facility] Lisinopril 10 Mg Tablet, Daily Active 05/13/[address] [facility] Metoprolol Succinate 50 Mg Tab.sr.24h, Twice A Day Active 05/13/[address] [facility] Albuterol Sulfate 0.63 Mg/3 Ml Vial.neb Every [address] [facility] Alendronate Sodium 70 Mg Tablet Daily Active [facility] Amlodipine Besylate 5 Mg Tablet Daily Active [facility] Aspirin (Aspir 81) 81 Mg Tablet. Daily Active [facility] Budesonide 0.5 Mg/2 Ml Ampul.[place] Active [facility] Calcium Carbonate 500 Mg Tablet Three Times A Day Active [facility] Clotrimazole 15 Gm Cream..g. Three Times A Day Active [facility] Fluticasone/Salmeterol (Advair 250-50 Diskus) 1 Each Disk.w.dev Active [facility] Ipratropium [place] 0.2 Mg/1 Ml Solution [address] [facility] Levocetirizine Dihydrochloride 5 Mg Tablet Bedtime Active [facility] Losartan Potassium 100 Mg Tablet Daily Active [facility] Metformin Hcl (Metformin Hcl Er) 500 Mg Tab.er.24 Twice A Day Active [facility] Mirtazapine 15 Mg Tab Daily Active [facility] Omeprazole 40 Mg Capsule. Daily Active [facility] Pramipexole Di-Hcl (Pramipexole Dihydrochloride) 1 Mg Tablet Daily Active 1 TAB PO IN THE MORNING AND 2 TABS AT BEDTIME [facility] Pravastatin Sodium 40 Mg Tablet Bedtime Active [facility] Tiotropium [place] (Spiriva) 18 Mcg Cap.w.dev Twice A Day Active BID PRN [facility] Tramadol Hcl (Ultram) 50 Mg Tablet Twice A Day Active [facility] Tylenol Every [address] [facility] Valerian Root 100 Mg Capsule Bedtime Active [facility] Allergies, Adverse Reactions, Alerts Substance Category Reaction Severity Reaction type Status Date Reported Comments Source Iodinated Contrast- Oral and IV Dye HIVES Intermediate Allergy to Substance Active 07/17/[address] [facility] Immunizations Immunization Date Given Site Status Last Updated Comments Source Results Order Name Results Value Reference Range Date Interpretation Comments Source Blood leukocytes automated count (number/volume) 5.58 4.8 - 10.8 06/26/[address] [facility] Blood erythrocytes automated count (number/volume) 3.89 3.6 - 5.1 06/26/[address] [facility] Blood hemoglobin measurement (moles/volume) 11.0 12.0 - 16.0 06/26/[address] [facility] Automated blood hematocrit (volume fraction) 34.2 34.2 - 44.1 06/26/[address] [facility] Automated erythrocyte mean corpuscular volume 87.9 81 - 99 06/26/[address] [facility] Automated erythrocyte mean corpuscular hemoglobin (mass per erythrocyte) 28.3 28 - 32 06/26/[address] [facility] Automated erythrocyte mean corpuscular hemoglobin concentration measurement (mass/volume) 32.2 31 - 35 06/26/[address] [facility] RDW BldCo-Rto 13.1 11.7 - 14.4 06/26/[address] [facility] Automated blood platelet count (count/volume) 212 140 - 360 06/26/[address] [facility] Automated blood segmented neutrophil count as percentage of total leukocytes 50.7 38.7 - 80.0 06/26/[address] [facility] Automated blood lymphocyte count as percentage ot total leukocytes 37.6 18.0 - 39.1 06/26/[address] [facility] Automated blood monocyte count as percentage of total leukocytes 8.2 4.4 - 11.3 06/26/[address] [facility] Automated blood eosinophil count as percentage of total leukocytes 2.2 0.0 - 6.0 06/26/[address] [facility] Automated blood basophil count as percentage of total leukocytes 0.9 0.0 - 1.0 06/26/[address] [facility] IM GRANULOCYTES % 0.4 0.0 - 1.0 06/26/[address] [facility] Automated blood neutrophil count 2.8 2.1 - 6.9 06/26/[address] [facility] Blood lymphocytes count (number/volume) 2.1 1.0 - 3.2 06/26/[address] [facility] Blood monocytes automated count (number/volume) 0.5 0.2 - 0.8 06/26/[address] [facility] Automated blood eosinophil count 0.1 0.0 - 0.4 06/26/[address] [facility] Automated blood basophil count (count/volume) 0.1 0.0 - 0.1 06/26/[address] [facility] Absolute Immature Granulocyte (auto 0.02 0 - 0.1 06/26/[address] [facility] Prothrombin time (PT) in platelet poor plasma by coagulation assay 12.4 11.9 - 14.5 06/26/[address] [facility] INR in Platelet poor plasma by Coagulation assay 0.88 06/26/[address] [facility] Activated partial thromboplastin time (aPTT) in platelet poor plasma bycoagulation assay 27.8 23.8 - 35.5 06/26/[address] [facility] Serum or plasma sodium measurement (moles/volume) 136 136 - 145 06/26/[address] [facility] Serum or plasma potassium measurement (moles/volume) 3.6 3.5 - 5.1 06/26/[address] [facility] Serum or plasma chloride measurement (moles/volume) 100 98 - 107 06/26/[address] [facility] Serum or plasma carbon dioxide, total measurement (moles/volume) 25 22 - 29 06/26/[address] [facility] Serum or plasma anion gap 14.6 8 - 16 06/26/[address] [facility] Serum or plasma urea nitrogen measurement (mass/volume) 18 7 - 26 06/26/[address] [facility] Serum or plasma creatinine measurement (mass/volume) 0.89 0.57 - 1.11 06/26/[address] [facility] Serum or plasma urea nitrogen/creatinine mass ratio 20 6 - 25 06/26/[address] [facility] Estimated glomerular filtration rate (GFR) determination > 60 60 06/26/[address] [facility] Glucose measurement 213 74 - 118 06/26/[address] [facility] Serum or plasma calcium measurement (mass/volume) 9.9 8.4 - 10.2 06/26/[address] [facility] Serum or plasma total bilirubin measurement (mass/volume) 0.5 0.2 - 1.2 06/26/[address] [facility] Aspartate Amino Transf (AST/SGOT) 24 5 - 34 06/26/[address] [facility] Serum or plasma alanine aminotransferase measurement (enzymatic activity/volume) 19 0 - 55 06/26/[address] [facility] Serum or plasma protein measurement (mass/volume) 7.4 6.5 - 8.1 06/26/[address] [facility] Serum or plasma albumin measurement (mass/volume) 3.8 3.5 - 5.0 06/26/[address] [facility] Plasma globulin measurement (mass/volume) 3.6 2.3 - 3.5 06/26/[address] [facility] Serum or plasma albumin/globulin mass ratio 1.1 0.8 - 2.0 06/26/[address] [facility] Serum or plasma alkaline phosphatase measurement (enzymatic activity/volume) 87 40 - 150 06/26/[address] [facility] BNP Bld-mCnc 184.8 0 - 100 06/26/[address] [facility] Serum or plasma creatine kinase measurement (enzymatic activity/volume) 233 29 - 168 06/26/[address] [facility] Serum or plasma creatine kinase MB measurement (mass/volume) 3.90 0 - 5.0 06/26/[address] [facility] Troponin I measurement by highly sensitive enzyme immunoassay 0.008 0 - 0.300 06/26/[address] [facility] Vital Signs Vital Sign Value Date Comments Source Encounters Location Location Details Encounter Type Encounter Number Reason For Visit Attending Provider ADM Date DC Date Status Source Departed Emergency Room [id number] CUCO PAYNE MD 06/26/2018 06/27/[address] [facility] Procedures Procedure Code Date Perfomer Comments Source X-ray of chest, two views [id number] 06/26/2018 [facility]
--- NOTE | 2018-08-17 10:05 | NUR ---
1005am Stable TR band site RT radial air removed. 2x2 dressing and Tegaderm with Coban dressing adequate vascular neuro function. Splint intact.Reviewed POC with family has copy of dc plans. 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 Escorted with [facility] [facility] employee. jackson/rn
--- NOTE | 2018-08-17 15:58 | Operative Report ---
DATE OF PROCEDURE: SURGEON: Matty Mchugh MD PROCEDURE: Left heart catheterization. INDICATION: Chest pain and angina. COMPLICATIONS: None. ANESTHESIA: Versed, fentanyl and lidocaine. TECHNIQUE: As follows; the right groin was draped and prepped in the usual fashion. The area was anesthetized with lidocaine. Standard Seldinger technique was used to place a 6-Wolof sheath into the right femoral artery without difficulty. A JL4 catheter was used to selectively engage the left coronary artery. A 3DRC catheter was used to selectively engage the right coronary artery. A pigtail catheter was used to perform a left ventriculogram. A Mynx device was used for closure. There were no complications. RESULTS: As follows: 1. Normal left main trunk. 2. There is a large left anterior descending artery, which had calcification and gave rise to a medium-sized diagonal branch with minimal disease in the left anterior descending artery system. 3. There was a medium-sized size AV circumflex artery which gave rise to a large bifurcating obtuse marginal branch. There was minimal disease in the circumflex system. 4. There was a large dominant right coronary artery with some calcification, but minimal disease. There was normal left ventricular size and function with an ejection fraction of 60%. There was no gradient across the aortic valve. CONCLUSION: Calcification of the coronary arteries with minimal stenosis, some mild atherosclerotic disease. Matty Mchugh MD DSH/MODL /[id number] cc: Carlos Claudio MD
== END | disposition home or self-care (01) ==
LOC: CATH LAB 06:08
PROVIDERS: ATTEND Internal Medicine Cardiovascular Disease
DX: I25.119 Atherosclerotic heart disease of native coronary artery with unspecified angina pectoris (principal); I10 Essential (primary) hypertension; E11.9 Type 2 diabetes mellitus without complications; Z01.812 Encounter for preprocedural laboratory examination; Z01.818 Encounter for other preprocedural examination; Z79.82 Long term (current) use of aspirin
CPT/HCPCS: 36415; 71046; 80053; 85025; 85610; 85730; 93458; C1760; C1769 ×2; C1887; J1644; J2001; J2250; J7030; Q9967

== ENCOUNTER 2018-08-20 15:12 | Observation (INO) | payer MEDICARE, OTHER ==
[~2018-08-20] VITALS: Ht 162.6 cm; Wt 66.4 kg
[~2018-08-20 15:12] MED LIST changes: -FENTANYL CITRATE/PF 100MCG/2 ML INJ ONE; -HEPARIN SOD (PORCINE) 1000 UNIT/ML 30ML ONE; -HEPARIN SOD/SOD CHLORIDE 2,000 ML ONE; -IOPAMIDOL 370 MG/ML 200 ML INFUS..BTL INJ ONE; -LIDOCAINE HCL 2% LOCAL 20 ML VIAL ONE; -MIDAZOLAM HCL 2 MG/2 ML VIAL ONE; -NITROGLYCERIN/D5W 200 MCG/ML 250 ML ONE; -SODIUM CHLORIDE 0.9% 1000ML 1,000 ML ONE; -VERAPAMIL HCL 2.5 MG/ML 2 ML VIAL ONE
[2018-08-20 18:04] LABS: BASOPHILS % 0.5 % (0.0-1.0); EOSINOPHILS # (AUTO) 0.2 (0.0-0.4); EOSINOPHILS % 2.6 % (0.0-6.0); HEMOGLOBIN 7.2 g/dL (12.0-16.0); LYMPHOCYTES % 33.1 % (18.0-39.1); MEAN CORPUSCULAR HEMOGLOBIN 27.7 pg (28-32); MEAN CORPUSCULAR HGB CONC 33.2 g/dL (31-35); MEAN CORPUSCULAR VOLUME 83.5 fL (81-99); MONOCYTES # (AUTO) 0.7 (0.2-0.8); MONOCYTES % 10.8 % (4.4-11.3); NEUTROPHILS # (AUTO) 3.2 (2.1-6.9); PLATELET COUNT 196 x10e3/uL (140-360); RED CELL DISTRIBUTION WIDTH 13.6 % (11.7-14.4)
[2018-08-20 18:09] LABS: HEMATOCRIT 21.7 % (34.2-44.1)
[2018-08-20 18:14] LABS: INR 0.91; PROTHROMBIN TIME 12.7 seconds (11.9-14.5)
[2018-08-20] MEDS ORDERED: SODIUM CHLORIDE 0.9% 250ML 250 ML IV ONE (18:15)
[2018-08-20 18:18] LABS: ANION GAP 11.5 mmol/L (8-16); BLOOD UREA NITROGEN 36 mg/dL (7-26); BUN/CREATININE RATIO 41 (6-25); CALCIUM 9.1 mg/dL (8.4-10.2); CARBON DIOXIDE 29 mmol/L (22-29); CHLORIDE 97 mmol/L (98-107); CREATININE, SERUM 0.87 mg/dL (0.57-1.11); EST GLOMERULAR FILTRATION RATE > 60 ML/MIN (60-); GLUCOSE 169 mg/dL (74-118); POTASSIUM 3.5 mmol/L (3.5-5.1); SODIUM 134 mmol/L (136-145)
[2018-08-20] MEDS ORDERED: METHYLPREDNISOLONE SOD SUCC 125 MG/2ML VIAL IV ONE (18:30)
[2018-08-20] MEDS ORDERED: DIPHENHYDRAMINE HCL INJ 50 MG/ML VIAL IV ONE (18:30)
[2018-08-20] MEDS ORDERED: LORAZEPAM 0.5 MG TAB PO PRN (19:15)
[2018-08-20] MEDS ORDERED: ONDANSETRON HCL INJ 2MG/ML 2ML 2 MG/ML VIAL IV PRN (19:30)
[2018-08-20] MEDS ORDERED: MORPHINE SULFATE INJ 4 MG/ML INJ 1ML IV PRN (19:30)
[2018-08-20] MEDS ORDERED: SODIUM CHLORIDE FLUSH 10 ML SYR INJ PRN (19:30)
[2018-08-20] MEDS ORDERED: MORPHINE SULFATE 2 MG/ML SYR 1ML IV PRN (19:30)
--- NOTE | 2018-08-20 19:43 | Diagnostic Imaging Report ---
EXAM: CT ABDOMEN/PELVIS WO DATE: 08/20/2018 6:46 PM INDICATION: Leg swelling, rule out retroperitoneal hematoma COMPARISON: None TECHNIQUE: The abdomen and pelvis were scanned using a multidetector helical scanner. Coronal and sagittal reformations were obtained. CT low dose techniques were utilized, as applicable. IV Contrast: 0 ml Isovue 300/370 FINDINGS: Lack of IV contrast decreases sensitivity in evaluating abdominal and pelvic organs. LOWER THORAX: No consolidations. Calcified granuloma in the left sulcus. LIVER/BILIARY: No masses. No ductal dilatation. GALLBLADDER: Unremarkable SPLEEN: Unremarkable PANCREAS: Unremarkable ADRENALS: No nodules KIDNEYS: No stones. No hydronephrosis. GI TRACT: No wall thickening or evidence of obstruction. VESSELS: Unremarkable PERITONEUM/RETROPERITONEUM: No free air or fluid. No hemorrhage. LYMPH NODES: No lymphadenopathy REPRODUCTIVE ORGANS/BLADDER: Unremarkable SOFT TISSUES: Extensive fat stranding around the right hip girdle and anterior thigh. 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 Rods and fixation of the right femur partially visualized. IMPRESSION: 1. No retroperitoneal hematoma. 2. Probable intramuscular hematoma partially visualized, between the sartorius and vastus musculature. Further imaging with ultrasound or dedicated CT may be considered to assess the extent. 3. 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 Signed by: Fantasma Heart MD on 08/20/2018 7:39 PM
[2018-08-20 22:02] VITALS: BP 134/61
--- NOTE | 2018-08-20 22:36 | NUR ---
SPOKE TO [facility] WITH DR. PADILLA; ADMIT PT TO MED SURG
[2018-08-21] VITALS (10 sets, daily range): BP systolic 120–210; BP diastolic 46–92
[2018-08-21] MEDS ORDERED: SODIUM CHLORIDE 0.9% 250ML 250 ML ONE (00:28)
--- NOTE | 2018-08-21 01:28 | Consultation ---
DATE OF CONSULTATION: Cardiology Consultation CHIEF COMPLAINT: The patient is an 83-year-old with right groin hematoma. HISTORY OF PRESENT ILLNESS: The patient is an 83-year-old, who had a cardiac catheterization done last weekend, which demonstrated minimal coronary artery disease. The patient was at home yesterday when she got up to go to the bathroom and then strained and started developing some pain in her groin. The patient's right thigh started to swell and became black and blue. The patient came to the emergency room. The patient was noted to have a hemoglobin down to 7.2. The patient has had no chest pain. No nausea. No vomiting. No shortness of breath. PAST MEDICAL HISTORY: Significant for: 1. Diabetes mellitus. 2. Chronic pain syndrome. 3. Hypertension. MEDICATIONS: At home include Aricept, furosemide, hydrochlorothiazide, losartan, metformin, metoprolol, and pravastatin. SOCIAL HISTORY: The patient does not drink, does not smoke. The patient lives at home with the family. PHYSICAL EXAMINATION: GENERAL: The patient is an older female, in no obvious distress. VITAL SIGNS: Included temperature of 97.9, blood pressure of 143/62. HEAD, EARS, EYES, NOSE AND THROAT: The patient's cranium was normocephalic and atraumatic. Extraocular muscles were intact. Sclerae anicteric. Pupils were equal, round, and reactive to light. There was no pallor or cyanosis of the oral mucosa. There is no erythema or edema of the throat. NECK: Supple. No jugular venous distention. No carotid bruits. CHEST: Clear to auscultation and percussion. CARDIAC: Demonstrated normal S1 and S2 with a short 2/6 systolic murmur. ABDOMEN: Demonstrated good bowel sounds. No tenderness and no masses. EXTREMITIES: The patient did have a large hematoma of the right thigh. The pulse was palpable. The femoral pulse was 2 to 3+. NEUROLOGIC: The patient was alert and oriented x3. Cranial nerves II through XII were intact. Motor strength was 5+/5 in all limbs. IMAGING STUDIES: The patient's EKG demonstrated normal sinus rhythm with some nonspecific ST-T and T wave changes. IMPRESSION: The patient is an 83-year-old with groin hematoma after cardiac catheterization last week. RECOMMENDATIONS: Are as follows: 1. The patient will need to be admitted for observation. 2. The patient will need to be transfused with 2 units of packed red blood cells. 3. The patient will require a CT scan to exclude a retroperitoneal hematoma. MD SHERRY Leigh/MODL /[id number] cc: Carlos Claudio MD
--- NOTE | 2018-08-21 07:00 | NUR ---
BEDSIDE SHIFT REPORT DONE WITH SUPERVISOR P[employer] RO[employer] RN. PT DENIES NEEDS AT THIS TIME.
[2018-08-21] MEDS ORDERED: ALBUTEROL SULF 0.083% NEB SOLN 3 ML NEB NEB PRN (07:45)
[2018-08-21 08:13] LABS: BASOPHILS % 0.3 % (0.0-1.0); EOSINOPHILS # (AUTO) 0.1 (0.0-0.4); EOSINOPHILS % 1.9 % (0.0-6.0); HEMATOCRIT 29.6 % (34.2-44.1); HEMOGLOBIN 9.9 g/dL (12.0-16.0); LYMPHOCYTES # (AUTO) 1.6 (1.0-3.2); LYMPHOCYTES % 26.9 % (18.0-39.1); MEAN CORPUSCULAR HEMOGLOBIN 27.8 pg (28-32); MEAN CORPUSCULAR HGB CONC 33.4 g/dL (31-35); MEAN CORPUSCULAR VOLUME 83.1 fL (81-99); MONOCYTES # (AUTO) 0.6 (0.2-0.8); MONOCYTES % 10.8 % (4.4-11.3); NEUTROPHILS # (AUTO) 3.4 (2.1-6.9); NEUTROPHILS % 59.6 % (38.7-80.0); PLATELET COUNT 184 x10e3/uL (140-360); RED BLOOD COUNT 3.56 x10e6/uL (3.6-5.1); RED CELL DISTRIBUTION WIDTH 15.1 % (11.7-14.4)
[2018-08-21 08:29] LABS: ANION GAP 10.4 mmol/L (8-16); BLOOD UREA NITROGEN 22 mg/dL (7-26); BUN/CREATININE RATIO 29 (6-25); CALCIUM 9.2 mg/dL (8.4-10.2); CARBON DIOXIDE 28 mmol/L (22-29); CHLORIDE 97 mmol/L (98-107); CREATININE, SERUM 0.75 mg/dL (0.57-1.11); EST GLOMERULAR FILTRATION RATE > 60 ML/MIN (60-); GLUCOSE 143 mg/dL (74-118); POTASSIUM 3.4 mmol/L (3.5-5.1); SODIUM 132 mmol/L (136-145)
[2018-08-21 08:55] LABS: CREATINE KINASE MB 2.4 ng/mL (0-5.0)
[2018-08-21] MEDS: (Mirabegron (Myrbetriq) 25 MG) PO SCH (09:00)
[2018-08-21] MEDS ORDERED: NON-FORMULARY MEDICATION (Hydrochlorothiazide 12.5 MG) PO SCH (09:00)
[2018-08-21] MEDS ORDERED: ACETAMINOPHEN 325 MG TAB PO PRN (09:30)
[2018-08-21] MEDS ORDERED: HYDRALAZINE HCL 20 MG/ML VIAL IV PRN (09:30)
[2018-08-21] MEDS ORDERED: ONDANSETRON HCL INJ 2MG/ML 2ML 2 MG/ML VIAL IV PRN (09:30)
[2018-08-21] MEDS ORDERED: DEXTROSE 50% SYRINGE 50 ML IV PRN (09:30)
[2018-08-21] MEDS ORDERED: POTASSIUM CHLORIDE 20 MEQ TAB CR PO SCH (09:45)
[2018-08-21] MEDS: LOSARTAN POTASSIUM 100 MG TAB PO SCH (09:56)
[2018-08-21] MEDS: HYDROCHLOROTHIAZIDE 25 MG TAB PO SCH (09:56)
[2018-08-21] MEDS: METFORMIN HCL 500 MG TAB CR PO SCH (09:57)
[2018-08-21] MEDS: FUROSEMIDE 40 MG TAB PO SCH (09:57)
[2018-08-21] MEDS: GABAPENTIN 300 MG CAP PO SCH ×2 (09:57→20:51)
[2018-08-21] MEDS: METOPROLOL TARTRATE 25 MG TAB PO SCH ×2 (09:57→16:30)
[2018-08-21] MEDS: PANTOPRAZOLE SOD 40 MG TABEC PO SCH (09:57)
[2018-08-21] MEDS: POTASSIUM CHLORIDE 10MEQ EA PO SCH ×2 (09:58→10:01)
[2018-08-21] MEDS: SALMETEROL/FLUTICASONE 250/50 INH SCH (11:45)
[2018-08-21] MEDS: INSULIN LISPRO 100 UNIT/1 ML 3ML VIAL SQ SCH ×3 (12:00→20:51)
[2018-08-21] MEDS ORDERED: ONDANSETRON HCL 4 MG ORAL DISINTEGRATING TAB PO PRN (13:00)
[2018-08-21] MEDS: PRAMIPEXOLE DIHYDROCHLORIDE 1 MG TAB PO SCH ×3 (13:08→20:51)
--- NOTE | 2018-08-21 13:20 | Progress Note ---
DATE: Pulmonary Critical Care Progress Note CHIEF COMPLAINT: Swelling and pain in the groin following cardiac catheterization. HISTORY OF PRESENT ILLNESS: The patient is an 83-year-old woman. She has a history of chronic persistent asthma and COPD. She uses inhalers at home. She also uses oxygen at home. She has Parkinson disease as well as restless legs syndrome. She takes Sinemet and Mirapex at home as well. The patient complains of chronic fatigue and dyspnea. She had a recent cardiac catheterization that showed no obstructive coronary artery disease. She did not require a stent. She noted bleeding. She noted some swelling and discoloration on the medial aspect of her groin two or three days after the procedure. She came to the emergency department. She had a low hemoglobin of 7.2 and required 2 units of packed red blood cells. A subsequent CT scan of the abdomen and pelvis showed no retroperitoneal bleed. An ultrasound showed no pseudoaneurysm. There was poor circulation in the posterior tibial artery and the anterior tibial artery. PAST MEDICAL HISTORY: 1. Parkinson disease. 2. Restless legs syndrome. 3. Hypertension. 4. COPD. PAST SURGICAL HISTORY: 1. Status post ventral hernia repair. 2. Status post hip surgery. 3. History of hysterectomy. 4. Cardiac catheterization. SOCIAL HISTORY: The patient does not drink or smoke. She lives with her family. She has good social support. FAMILY HISTORY: There is a history of diabetes and hypertension. REVIEW OF SYSTEMS: No fever or headache. No neck pain. She has no chest pain. She has no difficulty breathing. She has no abdominal pain. She has no nausea or vomiting. She does note swelling and discoloration in the right thigh. PHYSICAL EXAMINATION: VITAL SIGNS: The patient is afebrile. The blood pressure is 188/92. Saturation is 100%. The pulse is 88 and the respiratory rate is 18. HEENT: Shows no facial swelling or erythema. The nasal mucosa is normal. The oropharynx is normal. LYMPHATIC: Shows no submandibular, cervical, or supraclavicular adenopathy. CARDIAC: Reveals regular rate and rhythm with a normal S1 and S2. There are no murmurs or rubs. LUNGS: Auscultation of lungs reveals decreased breath sounds at the bases. There is no wheezing. ABDOMEN: Soft, nontender. There is no rebound or guarding. EXTREMITIES: Show discoloration and bruising on the medial aspect of the right thigh. There is some swelling. There are decreased peripheral pulses with a warm foot. NEUROLOGIC: Shows some mild increased tone. There are no focal abnormalities. LABORATORY DATA: Hemoglobin is increased to 9.9 this morning and the white blood cell count is 5.7. The platelet count is 184. The BUN to creatinine ratio is normal. The other electrolytes are within normal limits. IMPRESSION: 1. Anemia secondary to acute blood loss. 2. Chronic obstructive pulmonary disease. 3. Parkinson disease. 4. Restless legs syndrome. PLAN: 1. Continue to monitor blood counts and observe for any additional bleeding. 2. Await for official report of arterial duplex. 3. Continue home medications. 4. Pain control. Martin Mchugh MD [facility] /[id number]
[2018-08-21 16:48] LABS: CREATINE KINASE MB 2.5 ng/mL (0-5.0)
[2018-08-21] MEDS ORDERED: ZOLPIDEM TARTRATE 5 MG TAB PO SCH (21:00)
[2018-08-21] MEDS ORDERED: LORAZEPAM 0.5 MG TAB PO PRN (21:00)
[2018-08-21] MEDS ORDERED: NON-FORMULARY MEDICATION (Pravastatin Sodium 1 TAB) PO SCH (21:00)
[2018-08-21] MEDS ORDERED: PRAVASTATIN 20 MG TAB PO SCH (21:00)
[2018-08-21] MEDS ORDERED: DONEPEZIL HCL 5 MG TAB PO SCH (21:00)
--- NOTE | 2018-08-21 23:37 | Consultation ---
DATE OF CONSULTATION: 08/21/2018 CHIEF COMPLAINT: Right leg hematoma. HISTORY OF PRESENT ILLNESS: The patient is an 83-year-old female admitted with right groin swelling and ecchymosis for a few days, status post right femoral access for cardiac catheterization. The patient is able to ambulate with some pain in her right upper thigh area. PAST MEDICAL HISTORY: Significant for hypertension, diabetes, COPD, and Parkinson disease. SURGICAL HISTORY: Positive for recent cardiac catheterization, hysterectomy, hip surgery, and ventral hernia repair. SOCIAL HABITS: The patient says no history of smoking or alcohol abuse. ALLERGIES: SHE IS ALLERGIC TO IODINE CONTRAST. REVIEW OF SYSTEMS: No chest pain or shortness of breath. PHYSICAL EXAMINATION: VITAL SIGNS: Stable. Afebrile. GENERAL: The patient is awake, alert, in no apparent distress. HEENT: Sclerae anicteric. NECK: Supple. LUNGS: Clear. HEART: Regular rate and rhythm. ABDOMEN: Soft. Right groin is non-swollen or tender. EXTREMITIES: Right femoral pulse is palpable. Right thigh is ecchymotic on the anterior and lateral aspect down towards the knee area. No fluctuance. No tissue tension. Distal lower extremity is warm, but no pulse is palpable. No exam grossly intact. LABORATORY DATA: White cell count 6, hemoglobin of 9.9, and platelet count is 184. INR of 0.9 and creatinine of 0.7. CT of the abdomen showed no retroperitoneal hematoma. Intramuscular hematoma noted in the right upper extremity medially. ASSESSMENT: Bleeding from femoral arterial access site for catheterization four days ago with extravasations into the intramuscular and subcutaneous tissue. The patient is hemodynamically stable. No clinical evidence of active hemorrhage. PLAN: Monitor H and H daily. The patient had arterial Doppler to assess for active bleeding. We will follow. MD ALO Hernandez/TIFFANY /[id number]
[2018-08-22 00:44] VITALS: BP 145/61
[2018-08-22 05:37] VITALS: BP 145/65
[2018-08-22 05:39] LABS: BASOPHILS % 0.5 % (0.0-1.0); EOSINOPHILS # (AUTO) 0.3 (0.0-0.4); EOSINOPHILS % 5.5 % (0.0-6.0); HEMATOCRIT 30.6 % (34.2-44.1); LYMPHOCYTES # (AUTO) 1.9 (1.0-3.2); LYMPHOCYTES % 30.7 % (18.0-39.1); MEAN CORPUSCULAR HEMOGLOBIN 27.5 pg (28-32); MEAN CORPUSCULAR HGB CONC 32.7 g/dL (31-35); MEAN CORPUSCULAR VOLUME 84.1 fL (81-99); MONOCYTES # (AUTO) 0.8 (0.2-0.8); MONOCYTES % 13.5 % (4.4-11.3); NEUTROPHILS % 48.8 % (38.7-80.0); PLATELET COUNT 219 x10e3/uL (140-360); RED BLOOD COUNT 3.64 x10e6/uL (3.6-5.1)
[2018-08-22 06:08] LABS: ANION GAP 11.8 mmol/L (8-16); BLOOD UREA NITROGEN 23 mg/dL (7-26); BUN/CREATININE RATIO 32 (6-25); CALCIUM 9.3 mg/dL (8.4-10.2); CARBON DIOXIDE 29 mmol/L (22-29); CHLORIDE 96 mmol/L (98-107); CREATININE, SERUM 0.73 mg/dL (0.57-1.11); EST GLOMERULAR FILTRATION RATE > 60 ML/MIN (60-); GLUCOSE 113 mg/dL (74-118); MAGNESIUM 1.6 MG/DL (1.3-2.1); POTASSIUM 3.8 mmol/L (3.5-5.1); SODIUM 133 mmol/L (136-145)
[2018-08-22] MEDS: SALMETEROL/FLUTICASONE 250/50 INH SCH (07:20)
[2018-08-22] MEDS: INSULIN LISPRO 100 UNIT/1 ML 3ML VIAL SQ SCH ×2 (07:30→12:00)
[2018-08-22 08:17] VITALS: BP 208/76
[2018-08-22] MEDS: HYDROCHLOROTHIAZIDE 25 MG TAB PO SCH (08:52)
[2018-08-22] MEDS: PRAMIPEXOLE DIHYDROCHLORIDE 1 MG TAB PO SCH ×2 (08:52→15:14)
[2018-08-22] MEDS: GABAPENTIN 300 MG CAP PO SCH (08:52)
[2018-08-22] MEDS: FUROSEMIDE 40 MG TAB PO SCH (08:52)
[2018-08-22] MEDS: METOPROLOL TARTRATE 25 MG TAB PO SCH (08:52)
[2018-08-22] MEDS: (Mirabegron (Myrbetriq) 25 MG) PO SCH (08:52)
[2018-08-22] MEDS: LOSARTAN POTASSIUM 100 MG TAB PO SCH (08:52)
[2018-08-22] MEDS: PANTOPRAZOLE SOD 40 MG TABEC PO SCH (08:52)
--- NOTE | 2018-08-22 08:55 | NUR ---
Patient refuses bed alarm. She does understand to call when getting up./
[2018-08-22 08:58] VITALS: BP 208/76
[2018-08-22] MEDS: METFORMIN HCL 500 MG TAB CR PO SCH (09:58)
[2018-08-22 11:52] VITALS: BP 149/68
--- NOTE | 2018-08-22 13:45 | NUR ---
Discharge instructions give to the patient and her daughter, who she lives with. They verbalized understanding. IV to the right ac was removed with tip intact
--- NOTE | 2018-08-23 05:04 | Discharge Summary ---
ADMISSION DIAGNOSES: Right groin hematoma, status post heart catheterization one week ago, acute blood loss anemia secondary to right groin hematoma, hypertension, hyperlipidemia, gastroesophageal reflux disease, asthma, dementia, type 2 diabetes, overactive bladder, hypokalemia. DISCHARGE DIAGNOSES: Right groin hematoma, status post heart catheterization one week ago, acute blood loss anemia secondary to right groin hematoma, hypertension, hyperlipidemia, gastroesophageal reflux disease, asthma, dementia, type 2 diabetes, overactive bladder, hypokalemia. Rule out retroperitoneal hematoma. HISTORY: The patient has a history of hypertension, type 2 diabetes, chronic pain, hyperlipidemia, GERD, asthma, osteoporosis, dementia, depression, anxiety. SURGICAL HISTORY: Hysterectomy and abdominal hernia repair. FAMILY HISTORY: The patient's daughter and son have diabetes. The patient's brother had a heart attack. SOCIAL HISTORY: Noncontributory. HOSPITAL COURSE: An 83-year-old female with history of heart catheterization last weekend, got up to go to the restroom prior to admission and noticed right groin pain after straining. She then noticed her groin was turning black and blue. On admission, hemoglobin was noted to be 7.7. She was given two PRBCs. CT of the abdomen and pelvis showed no retroperitoneal hematoma, probable intramuscular hematoma partially visualized between the sartorius and vastus musculature. The patient then had an arterial Doppler of the right lower extremity, which showed arterial disease without significant stenosis. Due to the patient needing 2 units of blood, surgery was consulted to rule out any need for evacuation. Per Surgery, evacuation is not warranted at this time. The patient's hemoglobin went up to 9.9. She will discharge home. She is ambulating back to baseline. The patient understands discharge instructions and agrees to plan. She will follow up with primary care in 1 to 2 weeks. Vital signs stable, the patient afebrile. Dictated by Mia Us NP MD TRUDY Mcclellan/TIFFANY /[id number]
[2018-08-24] MEDS ORDERED: ALENDRONATE SODIUM 70 MG TAB PO SCH (06:30)
== END 2018-08-22 15:57 | disposition home or self-care (01) ==
LOC: ER 15:12 → INTOOBSV 22:11 → ERHOLD 22:11 → MED/SURG2 23:05
PROVIDERS: ADMIT Internal Medicine; ATTEND Internal Medicine
DX: S30.1XXA Contusion of abdominal wall, initial encounter (principal); I10 Essential (primary) hypertension; E11.9 Type 2 diabetes mellitus without complications; M81.0 Age-related osteoporosis without current pathological fracture; G89.29 Other chronic pain; F03.90 Unspecified dementia, unspecified severity, without behavioral disturbance, psychotic disturbance, mood disturbance, and anxiety; F32.9 Major depressive disorder, single episode, unspecified; K21.9 Gastro-esophageal reflux disease without esophagitis; F41.9 Anxiety disorder, unspecified; D62 Acute posthemorrhagic anemia; G20 Parkinson's disease; J44.9 Chronic obstructive pulmonary disease, unspecified
CPT/HCPCS: 36415 ×3; 74176; 80048 ×3; 82550 ×2; 82553 ×2; 82948 ×2; 83735; 83880; 84484 ×2; 85025 ×3; 85610; 85730; 86850; 86900; 86920; 93926; 94664; 97116; 97161; 99284; G0378 ×3; J7050; P9016; S0164 ×2

== ENCOUNTER → 2019-02-15 | Outpatient (CLI) | payer MEDICARE, OTHER ==
[~2019-02-15] MED LIST changes: +LEVETIRACETAM500 MG PO; +NAMENDA10 MG PO
[2019-02-15 08:14] LABS: BASOPHILS # (AUTO) 0.1 (0.0-0.1); BASOPHILS % 1.2 % (0.0-1.0); EOSINOPHILS # (AUTO) 0.3 (0.0-0.4); EOSINOPHILS % 5.6 % (0.0-6.0); HEMATOCRIT 37.1 % (34.2-44.1); HEMOGLOBIN 11.8 g/dL (12.0-16.0); LYMPHOCYTES # (AUTO) 2.2 (1.0-3.2); LYMPHOCYTES % 36.4 % (18.0-39.1); MEAN CORPUSCULAR HEMOGLOBIN 29.4 pg (28-32); MEAN CORPUSCULAR HGB CONC 31.8 g/dL (31-35); MEAN CORPUSCULAR VOLUME 92.3 fL (81-99); MONOCYTES # (AUTO) 0.6 (0.2-0.8); MONOCYTES % 9.3 % (4.4-11.3); NEUTROPHILS # (AUTO) 2.8 (2.1-6.9); NEUTROPHILS % 47.3 % (38.7-80.0); PLATELET COUNT 178 x10e3/uL (140-360); RED BLOOD COUNT 4.02 x10e6/uL (3.6-5.1); RED CELL DISTRIBUTION WIDTH 12.8 % (11.7-14.4)
[2019-02-15 08:30] LABS: INR 0.91; PROTHROMBIN TIME 12.7 seconds (11.9-14.5)
[2019-02-15 08:31] LABS: PARTIAL THROMBOPLASTIN TIME 27.2 seconds (23.8-35.5)
--- NOTE | 2019-02-15 08:32 | Diagnostic Imaging Report ---
Chest, PA and lateral. History: Ventral hernia. Comparison: Chest graft dated 08/15/2018, abdomen and pelvis CT dated 08/20/2018. Discussion: The heart is within normal limits of size. The aorta has a tortuous appearance. There is no focal consolidation, sizable pleural effusion, or pneumothorax. No acute osseous abnormalities are identified. There are degenerative changes of the thoracic spine. The sternum is normal. IMPRESSION: No acute cardiopulmonary abnormality. Signed by: Larry Ellis MD on 02/15/2019 8:29 AM
[2019-02-15 08:37] LABS: ANION GAP 14.4 mmol/L (8-16); BLOOD UREA NITROGEN 31 mg/dL (7-26); BUN/CREATININE RATIO 36 (6-25); CALCIUM 9.5 mg/dL (8.4-10.2); CARBON DIOXIDE 26 mmol/L (22-29); CHLORIDE 98 mmol/L (98-107); CREATININE, SERUM 0.85 mg/dL (0.57-1.11); EST GLOMERULAR FILTRATION RATE > 60 ML/MIN (60-); GLUCOSE 128 mg/dL (74-118); POTASSIUM 4.4 mmol/L (3.5-5.1); SODIUM 134 mmol/L (136-145)
--- NOTE | 2019-02-15 09:47 | Diagnostic Imaging Report ---
CT of the abdomen and pelvis History: Ventral hernia Comparison: 08/20/2018. Technique: Multidetector CT scanning of the abdomen and pelvis was performed from the level of the lung bases to the inferior pubic ramus without IV contrast and with oral contrast. DOSE REDUCTION: The examination was performed according to departmental dose-optimization program which includes automated exposure control, adjustment of the mA and/or kV according to patient size and/or use of iterative reconstruction technique. Discussion: A calcified granuloma is identified in the left lower lobe. No focal hepatic lesions are identified. The gallbladder is present and nondistended. No radiopaque gallstones are identified. There is no intrahepatic or extrahepatic biliary dilatation. The spleen is within normal limits. Bilateral adrenal glands are unremarkable. The pancreas is normal in attenuation. There is no pancreatic ductal dilatation. The kidneys are normal in size. There is no hydroureteronephrosis bilaterally. No kidney stones are identified. The stomach, small, and large bowel are nondistended. There is no evidence of obstruction. No bowel wall thickening is appreciated. There is no free intraperitoneal air or ascites. The abdominal aorta is of normal course and caliber and demonstrates moderate atherosclerotic calcifications. The urinary bladder is within normal limits. There is a super umbilical ventral abdominal wall hernia which contains fat. The hernia defect measures approximately 2.1 cm in diameter. No acute osseous abnormalities are identified. IMPRESSION: Fat-containing supraumbilical ventral abdominal wall hernia. The hernia defect measures approximately 2.1 cm in diameter. Signed by: Larry Ellis MD on 02/15/2019 9:44 AM
== END ==
LOC: CT 07:27
PROVIDERS: ATTEND Surgery
DX: K43.9 Ventral hernia without obstruction or gangrene (principal)
CPT/HCPCS: 36415; 71046; 74176; 80048; 85025; 85610; 85730

== ENCOUNTER 2019-03-01 05:25 | Observation (INO) | payer MEDICARE, OTHER ==
[~2019-03-01] VITALS: Ht 160 cm; Wt 69.4 kg
[2019-03-01] MEDS ORDERED: LIDOCAINE 2%/ EPINEPHRINE 20ML MDV ONE (07:27)
[2019-03-01] MEDS ORDERED: BACITRACIN 50,000 UNIT VIAL ONE (07:28)
[2019-03-01] MEDS ORDERED: BUPIVACAINE LIPOSOME/PF 266 MG/20 ML IJ ONE (07:28)
[2019-03-01] MEDS ORDERED: BUPIVACAINE HCL 0.5% INJ 30 ML VIAL INJ ONE (07:28)
[2019-03-01] MEDS ORDERED: BUPIVACAINE HCL 0.25% 10ML MPF VIAL INJ ONE (09:11)
[2019-03-01] MEDS ORDERED: KETOROLAC TROMETHAMINE 30 MG/ML VIAL IV PRN (10:15)
[2019-03-01] MEDS ORDERED: ONDANSETRON HCL INJ 2MG/ML 2ML 2 MG/ML VIAL IV PRN (10:15)
[2019-03-01] MEDS ORDERED: HYDROMORPHONE 1MG/1ML INJ IV PRN (10:15)
[2019-03-01] MEDS ORDERED: CEFAZOLIN SOD 1 GM/NS 50ML 50 ML IV ONE (10:15)
[2019-03-01] MEDS ORDERED: TRAMADOL HCL 50 MG TAB PO PRN (10:15)
[2019-03-01] MEDS: CEFAZOLIN SOD 1 GM/NS 50ML 50 ML IV SCH ×3 (10:40→22:43)
--- NOTE | 2019-03-01 11:00 | NUR ---
Received patient and a/ox3, no resp distress, in bed, pains well managed, IV in place running, bed alarms in place, SCDs in place, incision to abdomen intact with dressing, call light within reach, daughter at bed side, will monitor.
--- NOTE | 2019-03-01 11:17 | Operative Report ---
DATE OF PROCEDURE: 03/01/2019 SURGEON: Jose Garcia MD PREOPERATIVE DIAGNOSES: Recurrent ventral hernia, advanced age, arthritis, asthma, history of atherosclerotic heart disease. POSTOPERATIVE DIAGNOSES: Recurrent ventral hernia, advanced age, arthritis, asthma, history of atherosclerotic heart disease. PROCEDURE PERFORMED: Repair of incarcerated recurrent ventral hernia with the Ventralex large patch and omphalectomy. ANESTHESIA: General endotracheal. ESTIMATED BLOOD LOSS: Minimal. DRAINS: None. COMPLICATIONS: None. INDICATION AND FINDINGS: The patient is an 83-year-old female who was seen in my office, referred by her primary care because of persistent abdominal pain located in the epigastric region or supraumbilical region exactly over a palpable hernia in that location This hernia was interfering with her sleep. The patient had been wearing a binder and she persisted with the pain. I performed a CT scan that revealed omentum in the supraumbilical hernia. The patient insisted on having repair. I told the patient that since she had limited mobility and multiple medical problems, another reasonable option would be observation, and to use a binder. However, she refused that because she said that she was already using a binder and continued with the pain. Preoperatively, this was discussed on multiple occasion including the day of surgery. The patient after long discussion with Anesthesia, expressed desire to be DNR, do not want intubation and resuscitative maneuvers. We then proceeded with the procedure. INTRAOPERATIVE FINDINGS: Incarcerated ventral hernia that contained omentum located superior to the umbilicus. Ventralex large mesh was placed in the intraabdominal location. There was evidence of previous stitches in the area from previous hernia repair. DESCRIPTION OF PROCEDURE: With the patient lying on the operative table in the supine position, after administration of general anesthesia, she was prepped and draped for repair of incarcerated supraumbilical ventral hernia. The umbilicus contained large amounts of debris and sediment, which was impossible to remove completely without jeopardizing the sterility of the field. I went ahead and closed the umbilical pit with a running 2-0 silk and then incorporated that into an elliptical incision and the omphalectomy was performed using electrocautery until we came across the omentum, the sac was opened, excised. The omentum that was trapped was viable and it was reduced. Then, we placed the Ventralex patch large size in the intraabdominal cavity and deployed it flat against the abdominal wall, taking care not to allow interposition of tissue between the mesh and the abdominal wall. It lay flat. At this point, we then secured the mesh through the straps and around the periphery of the mesh with a series of interrupted 2-0 Ethibond sutures. The straps were closed and then we loosely approximated the fascia over the umbilical defect with 0 Ethibond suture without any tension. This was performed to allow an extra barrier to the exterior. We then irrigated the wound as it had been done throughout the procedure with bacitracin containing solution. We then proceeded to give her local block using combination of 20% Exparel and 30 mL of 0.25% plain Marcaine as a field block including the incision and then we closed the wound using 2-0 Vicryl for the soft tissues and 3-0 plain for the subcuticular planes and more superficial fatty planes and the skin was closed using a combination of 3-0 vertical mattress sutures and randi. Sterile dressing was applied. The patient tolerated the procedure well and taken to recovery room in stable condition. MD CUATE Abdi/TIFFANY /[id number]
[2019-03-01 11:19] VITALS: BP 148/68
[2019-03-01 11:42] VITALS: BP 180/77
[2019-03-01] MEDS ORDERED: SEVOFLURANE INHAL SOLN 250 ML PEN BTL ONE (12:48)
[2019-03-01] MEDS ORDERED: DEXAMETHASONE SOD PHOS INJ 4 MG/ML VIAL ONE (12:48)
[2019-03-01] MEDS ORDERED: ONDANSETRON HCL INJ 2MG/ML 2ML 2 MG/ML VIAL ONE (12:48)
[2019-03-01] MEDS ORDERED: ETOMIDATE 2 MG/ML 10 ML INJ IV ONE (12:48)
[2019-03-01] MEDS ORDERED: ROCURONIUM BROMIDE 10 MG/ML 5ML VIAL ONE (12:48)
[2019-03-01] MEDS ORDERED: KETOROLAC TROMETHAMINE 30 MG/ML VIAL ONE (12:48)
[2019-03-01] MEDS ORDERED: ACETAMINOPHEN 1000 MG/100 ML IV ONE (12:48)
[2019-03-01] MEDS ORDERED: ATROPINE SULFATE 1 MG/ML VIAL ONE (12:48)
[2019-03-01] MEDS ORDERED: NEOSTIGMINE 1 MG/ML 10ML VIAL ONE (12:48)
--- OUTSIDE RECORDS SUMMARY | 2019-03-01 14:09 | XMS REPORT ---
Author [facility] Address Unknown Phone Unavailable Care Team Providers Care Car Examiner Name Role Phone DEREK BAEZ Unavailable Unavailable Светлана PAYNE Unavailable Unavailable TESSY MCHUGH Unavailable Unavailable LAYO MCHUGH Unavailable Unavailable Susanne SHINE Unavailable Unavailable Payers Payer Name Policy Type Policy Number Effective Date Expiration Date Problems This patient has no known problems. Allergies, Adverse Reactions, Alerts Allergy Name Allergy Type Status Severity Reaction(s) Onset Date Inactive Date Treating Clinician Comments iodine DA Active U 2017-09-02 00:00:00 iodine DA Active SV 2015-02-19 00:00:00 Medications This patient has no known medications. Encounters Start Date/Time End Date/Time Encounter Type Admission Type Attending Clinicians Care Facility Care Department Encounter ID 2018-08-08 12:49:10 Outpatient [id number] Results Test Description Test Time Test Comments Text Results Atomic Results Result Comments CT ABDOMEN/PELVIS WO 2019-02-15 09:15:00 [facility] [address] [place] [address] Patient Name: SLOAN SANCHEZ MR #: [id number] : 1935 Age/Sex: 83/F Req #: [id number] Adm Physician: Ordered by: DEREK BAEZ MD Report #: [id number] Location: CT Room/Bed: Procedure: [id number] CT/CT ABDOMEN/PELVIS WO Exam Date: 02/15/19 Exam Time: 08 REPORT STATUS: Signed CT of the abdomen and pelvis History: Ventral he rnia Comparison: 08/20/2018. Technique: Multidetector CT scanning of the abdomen and pelvis was performed from the level of the lung bases to the inferior pubic ramus without IV contrast and with oral contrast. DOSE REDUCTION: The examination was performed according to departmental dose-optimization program which includes automated exposure control, adjustment of the mA and/or kV according to patient size and/or use of iterative reconstruction technique. Discussion: A calcified granuloma is identified in the left lower lobe. No focal hepatic lesions are identified. The gallbladder is present and nondistended. No radiopaque gallstones are identified. There is no intrahepatic or extrahepatic biliary dilatation. The spleen is within normal limits. Bilateral adrenal glands are unremarkable. The pancreas is normal in attenuation. There is no pancreatic ductal dilatation. The kidneys are normal in size. There is no hydroureteronephrosis bilaterally. No kidney stones are identified. The stomach, small, and large bowel are nondistended. There is no evidence of obstruction. No bowel wall thickening is appreciated. There is no free intraperitoneal air or ascites. The abdominal aorta is of normal course and caliber and demonstrates moderate atherosclerotic calcifications. The urinary bladder is within normal limits. There is a super umbilical ventral abdominal wall hernia which contains fat. The hernia defect measures approximately 2.1 cm in diameter. No acute osseous abnormalities are identified. IMPRESSION: Fat- containing supraumbilical ventral abdominal wall hernia. The hernia defect measures approximately 2.1 cm in diameter. Signed by: Larry Garber MD on 02/15/2019 9:44 AM Dictated By: LARRY GARBER MD 0915 Transcribed By: CECIL on 02/15/19943 COPY TO: DEREK BAEZ MD CHEST 2 VIEWS 2019-02-15 08:27:00 [facility] [address] [address] Patient Name: SLOAN SANCHEZ MR #: [id number] : 1935 Age/Sex: 83/F Req #: [id number] Adm Physician: Ordered by: DEREK BAEZ MD Report #: [id number] Location: CT Room/Bed: Procedure: [id number] DX/CHEST 2 VIEWS Exam Date: 02/15/19 Exam Time: 0750 REPORT STATUS: Signed Chest, PA and lateral. History: Ventral hernia. Co mparison: Chest graft dated 08/15/2018, abdomen and pelvis CT dated 08/20/2018. Discussion: The heart is within normal limits of size. The aorta has a tortuous appearance. There is no focal consolidation, sizable pleural effusion, or pneumothorax. No acute osseous abnormalities are identified. There are degenerative changes of the thoracic spine. The sternum is normal. IMPRESSION: No acute cardiopulmonary abnormality. Signed by: Larry Garber MD on 02/15/2019 8:29 AM Dictated By: LARRY GARBER MD 8 Transcribed By: CECIL on 02/15/19828 COPY TO: DEREK BAEZ MD - CTA ABD AORTA IF LWEX RO 2018-09-05 11:54:00 Name: SLOAN SANCHEZ [facility] [place] : 1935 Age/S: 83 / F [address] [place] [address] Blvd Unit #: [id number] Loc: [place] [address] Phys: Tessy Mchugh MD Acct: [id number] Dis Date: Status: REG RCR PHONE #: [phone] Exam Date: 09/04/2018 1622 FAX #: [phone] Reason: PERIPHERAL VASCULAR DISEASE, UNSPECIFIED. EXAMS: CPT CODE: [id number] [place] [address] Clinical Indication: 83-year-old female with peripheral vascular disease; Comparison: None TECHNIQUE: CT angiography of the abdomen, pelvis and lower extremities was performed from the level of the upper abdomen to the feet after administration of iodinated contrast. Coronal and sagittal reconstructions were obtained. 100 cc of Isovue-370 contrast material was used for the exam. 3-D reconstruction imaging with postprocessing was also performed of the arter ial vessels. DOSE: CT imaging performed at this location utilizes radiation dose optimization technique which includes one or more of the followin) Automated exposure control; 2) Adjustment of the mA and/or kV according to patient's size; 3) Use of iterative reconstruction techniques DLP (mGy-cm): 713.4 FINDINGS: CTA ABDOMEN: ARTERIAL EVALUATION: The abdominal aorta is normal in caliber without evidence of dissection flap. Mild to moderate atherosclerotic calcifications noted in the aorta and branch vessels. The celiac, superior mesenteric and inferior mesenteric arteries demonstrate mild ostial calcification without evidence of flow-limiting stenosis. The proximal arterial branches appear unremarkable. Replaced right hepatic artery noted. Accessory left renal artery noted. Mild ostial calcifications noted in the bilateral renal arteries without evidence of flow-limiting stenosis. ABDOMINAL SOLID ORGANS: Stable 1.9 cm low-density right adrenal nodule, likely adenoma. The arterial phase contrast-enhanced images of the liver, gallbladder, spleen, pancreas, kidneys and adrenals are otherwise unremarkable. PERITONEUM AND RETROPERITONEUM: There is no retroperitoneal or abdominal lymphadenopathy. There is no abdominal ascites. Small fat-containing supraumbilical hernia. STOMACH AND BOWEL: The noncontrast opacified stomach appears unremarkable. The noncontrast opacified loops of bowel in the abdomen are unremarkable. Mild colonic diverticulosis without evidence of acute diverticulitis. LOWER CHEST: Patchy groundglass in the dependent lower lobes suggestive of subsegmental atelectasis. Calcified granuloma in the PAGE 1 Signed Report (CONTINUED) Name: SLOAN SANCHEZ [facility] : 1935 Age/S: 83 / F [address] [facility] [address] Unit #: [id number] Loc: [place] [address] Phys: Tessy Mchugh MD Acct: [id number] Dis Date: Status: REG RCR PHONE #: [phone] Exam Date: 09/04/2018 1622 FAX #: [phone] Reason: PERIPHERAL VASCULAR DISEASE, UNSPECIFIED. EXAMS: CPT CODE: [id number] [place] [address] <Continued> left lower lobe. Coronary artery calcifications. Mitral annular calcifications. OSSEOUS STRUCTURES: There are no acute osseous abnormalities seen. CTA PELVIS: ARTERIAL EVALUATION: Bilateral common iliac artery calcification with mild stenosis. Mild atherosclerotic calcification in the proximal bilateral in ternal iliac arteries. Unremarkable bilateral external iliac arteries. BOWEL: The noncontrast opacified loops of small bowel and colon in the pelvis appear unremarkable. Mild colonic diverticulosis without evidence of acute diverticulitis. PERITONEUM AND EXTRAPERITONEAL REGIONS: There is no pelvic lymphadenopathy or ascites. The inguinal regions are unremarkable. GENITOURINARY: The bladder is unremarkable. Uterus is absent. OSSEOUS STRUCTURES: There are no acute osseous abnormalities seen. Internal fixation hardware noted in the proximal right femur. Degenerative changes in the spine, hips, and sacroiliac joints. CTA EXTREMITY: LOWER EXTREMITY ARTERIAL EVALUATION: RIGHT: COMMON FEMORAL: Unremarkable. DEEP FEMORAL: Unremarkable. SUPERFICIAL FEMORAL: Plaque in the distal portion with short segment moderate stenosis (series 7, image 222). POPLITEAL: Unremarkable. AN TERIOR TIBIAL: There is minimal contrast opacification of the anterior tibial artery past its proximal point with multiple foci of atherosclerotic calcification noted more distally. POSTERIOR TIBIAL: Unremarkable. PERONEAL: Unremarkable. DORSALIS PEDIS: Unremarkable. LEFT: COMMON FEMORAL: Unremarkable. DEEP FEMORAL: Unremarkable. SUPERFICIAL FEMORAL: Mild left plaque in the distal superficial femoral artery with multifocal mild stenoses. POPLITEAL: Mild plaque in the proximal popliteal artery with short segment moderate stenosis (series 7, image 236). ANTERIOR TIBIAL: Unremarkable PAGE 2 Signed Report (CONTINUED) Name: SLOAN SANCHEZ [facility] [place] : 1935 Age/S: 83 / F [address] [place], [place] [address]vd Unit #: [id number] Loc: [place] [address] Phys: Tessy Mchugh MD Acct: [id number] Dis Date: Status: REG RCR PHONE #: [phone] Exam Date: 09/04/2018 1622 FAX #: [phone] Reason: PERIPHERAL VASCULAR DISEASE, UNSPECIFIED. EXAMS: CPT CODE: [id number] [place] [address] <Continued> POSTERIOR TIBIAL: Unremarkable. PERONEAL: Unremarkable. DORSALIS PEDIS: Unremarkable. NON-VASCULAR LOWER EXTREMITY STRUCTURES: There are no fractures or dislocations noted. The lower extremity musculature appears unremarkable. IMPRESSION: 1. Mild to moderate atherosclerotic plaque noted throughout. 2. Minimal contrast opacification of the majority of the right anterior tibial artery suggestive of multifocal high-grade stenosis/occlusion. The right posterior tibial and peroneal arteries are patent. 3. Findings suggestive of short segment moderate stenoses in the right distal superficial femoral and left proximal popliteal art eries. 4. Stable right adrenal adenoma. 5. Small fat- containing supraumbilical hernia. 6. Mild colonic diverticulosis without evidence of acute diverticulitis. SL: [id number] at 1154 Reported and signed by: Sumaya Ren M.D. CC: Carlos Claudio MD; Tessy Mchugh MD Technologist:RT Rick(R)(CT) CTDI: DLP: Trnscb Date/Time: 09/05/2018 (0215) [email or web address] Orig Print D/T: S: 09/05/2018 (6515) PAGE 3 Signed Report CREATININE W ESTIMATED GFR 2018-09-03 11:49:00 BEDSIDE CREATININE (test code=CREATBED) 0.9 MG/DL 0.6-1.3 GLOMERULAR FILTRATION RATE POC (test code=GFRBED) 64 ML/MIN ENTER BEDSIDE CREATININE RESULT: 0.89Serial Number: [id number] Name of User Perfo rming Test: Steven CARBAJALTAINA ABDOMEN/PELVIS [id number] 19:32:[address] [address] Patient Name: SLOAN SANCHEZ MR #: [id number] : 1935 Age/Sex: 83/F Req #: [id number] Adm Physician: Ordered by: TESSY MCHUGH MD Report #: [id number] Location: ER Room/Bed: Procedure: [id number] CT/CT AB DOMEN/PELVIS WO Exam Date: 08/20/18 Exam Time: 1899 REPORT STATUS: Signed EXAM: CT A BDOMEN/PELVIS WO DATE: 08/20/2018 6:46 PM INDICATION: Leg swelling, rule o ut retroperitoneal hematoma COMPARISON: None TECHNIQUE: The abdomen and pe lvis were scanned using a multidetector helical scanner. Coronal and sagittal reformations were obtained. CT low dose techniques were utilized, as applicab le. IV Contrast: 0 ml Isovue 300/370 FINDINGS: Lack of IV contrast dec reases sensitivity in evaluating abdominal and pelvic organs. LOWER THORAX: No consolidations. Calcified granuloma in the left sulcus. LIVER/BILIARY: No masses. No ductal dilatation. GALLBLADDER: Unremarkable SPLEEN: Unrem arkable PANCREAS: Unremarkable ADRENALS: No nodules KIDNEYS: No stones. No hydronephrosis. GI TRACT: No wall thickening or evidence of obstruct ion. VESSELS: Unremarkable PERITONEUM/RETROPERITONEUM: No free air or fluid. No hemorrhage. LYMPH NODES: No lymphadenopathy REPRODUCTIVE ORGAN S/BLADDER: Unremarkable SOFT TISSUES: Extensive fat stranding around the ri ght hip girdle and anterior thigh. 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 Rods and fixation of the right femur partially visualized. IMPRESSION: 1. No retroperitoneal hematoma. 2. Probable intramuscu lar hematoma partially visualized, between the sartorius and vastus musculatur e. Further imaging with ultrasound or dedicated CT may be considered to assess the extent. 3. 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 Signed by: Fantasma Watt MD on 08/20/2018 7:39 PM Dictated By: GINNY FELDMAN MD 38 Tra nscribed By: CECIL on 08/20/181938 COPY TO: TESSY MCHUGH MD CHEST 2 [id number] 10:41:00 [facility] [address] [place], [place] [address] Patient Name: SLOAN SANCHEZ MR #: [id number] : 1935 Age/Sex: 83/F Req #: [id number] Adm Physician: Ordered by: TESSY MCHUGH MD Report #: [id number] Location: [facility] Room/Bed: Procedure: [id number] DX/CHEST 2 VIEWS Exam Date: 08/15/18 Exam Time: 1025 REPORT STATUS: Signed EXAMINATION: PA and lateral views of the chest. COMPARISON: 06/26/2018 CLINICAL HISTO RY: Preoperative study for heart catheterization DISCUSSION: Carol gs are well-inflated and without focal consolidation, pleural effusion, or pne umothorax. Mild prominence of the pulmonary interstitium likely reflects age-r elated fibrotic change. Tortuous thoracic aorta with atherosclerotic calcifica tion. Normal heart size. No acute osseous abnormality. IMPRESSION: No acute cardiopulmonary abnormalities. Signed by: Dr. Tessy Zhang M.D. on 08/15/2018 10:43 AM Dictated By: TESSY ZHANG MD [facility] Signed By: TESSY ZHANG MD on 08/15/181042 Transcribed By: CECIL on 0 08/15/181042 COPY TO: TESSY MCHUGH MD CHEST 2 [id number] 19:38:00 [facility] [address] [place], [place] [address] Patient Name: SLOAN SANCHEZ MR #: [id number] : 1935 Age/Sex: 83/F Req #: [id number] [facility] Physician: Ordered by: CUCO PAYNE MD Report #: [id number] Location: ER Room/Bed: Procedure: [id number] DX/C HEST 2 VIEWS Exam Date: 06/26/18 Exam Time: 1916 REPORT STATUS: Signed EXAMINATION: CHEST 2 VIEWS INDICATION: Shortness of breath SOB [id number] COMPARISON: 06/18/2016 FINDINGS: TUBES and LINES: No ne. LUNGS: Lungs are well inflated. Lungs are clear. There is no eviden ce of pneumonia or pulmonary edema. PLEURA: No pleural effusion or pneum othorax. HEART AND MEDIASTINUM: The cardiomediastinal silhouette is unrema rkable. Atherosclerotic calcifications of the aortic arch. BONES AND S OFT TISSUES: No acute osseous lesion. Soft tissues are unremarkable. UP PER ABDOMEN: No free air under the diaphragm. IMPRESSION: No acute t horacic abnormality. Signed by: Dr. Jose Arambula M.D. on 06/26/2018 7:39 PM Dictated By: JSOE ARAMBULA MD, MD 38 Transcribed By: CECIL on 06/26/181938 COPY TO: CUCO PAYNE MD - XR ANKLE 3 + V [id number] 18:13:00 FAX: Carlos Vela MD [phone] [place]: O St: DEP [facility]: [facility] [birth year] Age/S: 82/F [address] Unit #: [id number] Loc: [place], [place] [address] Phys: Carlos Claudio MD Acct: [id number] Dis Date: Status: DEP CLI PHONE #: [phone] Exam Date: 03/27/2018 1750 FAX #: [phone] Reason: M25.571 EXAMS: CPT CODE: [id number] XR ANKLE 3 + V RT 27897 REASON FOR EXAM: M25.571 EXAM ORDER DATE: 03/27/2018 5:21 PM O suman Jhaveri: Carlos Claudio MD PROCEDURE: - XR ANKLE 3 + V RT FINDINGS: 3 views of the right ankle were obtained. The osseous structures are unremarkable in size and shape with diffuse osteopenia. The joint spaces are maintained. No evidence of fracture. The syndesmosis is intact. IMPRESSION: Minimal soft tissue swelling in the lateral malleolus. No acute osseous abnormality Electronica lly Signed by Shakila Fan on 03/27/2018 at 1813 Reporte d and signed by: Jeffrey Fan M.D. CC: Carlos Claudio Technologist: RT Cassandra(Lenin) Trnscrd Date/Time/By: 03/27/2018 (1812) : By: JdVTL Orig Print D/T: S: 03/27/2018 (1815) PAGE 1 Signed Report - MRI BRAIN W/O [id number] 16:23:00 FAX: Carlos Vela MD [phone] [place]: B St: DIS FAX: Magno Montelongo I [phone] FAX: Fidencio Almaguer MD [phone] Name: SLOAN SANCHEZ [facility] : 1935 Age/S: 82/F [address] [facility] Unit #: [id number] Loc: [place], [place] [address] Phys: Fidencio Madrigal MD Acct: [id number] Dis Date: Status: DIS IN ONE #: [phone] Exam Date: 09/04/2017 1609 FAX #: [phone] Reason: ams EXAMS: CPT CODE: [id number] MR I BRAIN W/O CONTRAST 14577 REASON FOR EXA M: ams Exam Order Date: 09/04/2017 10:19 PM Attending Clay.: Fidencio Madrigal MD Procedure: - MRI BRAIN W/O CONTRAST Comparison: FINDINGS: Axial, sagittal, and coronal i mages of the head were obtained using T1, T2 weighted, inversion recovery, and gradient echo sequences. The diffusion images are within normal limi ts without evidence of acute infarct. No IV gadolinium was given. The sagittal images show normal pituitary, cerebellum, and brain stem. No evidence of suprasellar mass. The axial T2, inversion recove ry, and gradient echo images show no evidence of intra or extra axial mass . The ventricles, cisterns, and sulci are unremarkable. No evidence of hem orrhage. Multiple small right signal intensity seen in the deep white mat ter consistent with nonspecific deep white matter disease Th e cerebellar pontine angle area is within normal limits. There is no evide nce of mass noted. The axial T1 images show no evidence of mass. No evidence of old infarct. The coronal images show n ormal optic chiasm. IMPRESSION: Unremarkable brain E lectronically Signed by Shakila Fan on 09/04/2017 at 9413 Reported and signed by: Jeffrey Fan M.D. PAGE 1 Signed Report (CONTINUED) FAX: Carlos Vela MD [phone] [place]: B St: DIS FAX: Magno Montelongo I FAX: Fidencio Almaguer MD [phone] Name: SLOAN SANCHEZ [facility] : 1935 Age/S: 82/F [address] [facility] Unit #: [id number] Loc: [facility] [place] [address] Phys: Fidencio Madrigal MD Acct: [id number] Dis Date: Status: DIS IN PHONE #: [phone] Exam Date: 09/04/2017 1609 FAX #: [phone] Reason: ams EXAMS: CPT CODE: [id number] MRI BRAIN W/O CONTRAST 22673 <Continued> CC: Carlos Claudio; Magno Motley MD; Fidencio Madrigal MD Technologist: RT RADHA [facility] Date/Time/By: 09/04/2017 (9216) : By: JdVTL Orig Print D/T: S: 09/04/2017 (3019) PAGE 2 Signed Report - XR CHEST 1 [id number] 07:45:00 FAX: Carlos Vela MD [phone] [place]: St: DIS FAX: Magno Montelongo I [phone] FAX: Kaitlin Chi MD [phone] Name: SLOAN SANCHEZ [facility] : 1935 Age/S: 82/F [address] Unit #: [id number] Loc: [place] [address] Phys: Kaitlin Chi MD Acct: [id number] Dis Date: Status: DIS IN [facility] #: [phone] Exam Date: 09/03/2017 07 FAX #: [phone] Reason: CHEST PAIN EXAMS: CPT CODE: [id number] XR CHEST 1 V 45263 HISTORY: Chest pain. COMPARISON: Previous day. No acute infiltrate s, effusion or congestion is noted. Cardiomegaly. IMPRESSION: No acute infiltrates, effusion or congestion. at 0745 Reported and signed by: Syed Monterroso M.D. CC: Carlos Claudio; Magno Motley MD; Kaitlin Chi MD Technologist: Yasemin Monreal Trnscrd Date/Time/By: 0 09/03/2017 (0745) : By: [email or web address] Orig Print D/T: S: 09/03/2017 (0748) PAGE 1 Signed Report - XR HIP W/PEL UNI 2+V [id number] 16:39:00 FAX: Carlos Vela MD [phone] [place]: B St: DIS FAX: Magno Montelongo I [phone] FAX: Neo Mcguire MD [phone] Name: SLOAN SANCHEZ [facility] : 1935 Age/S: 82/F [address] Unit #: [id number] Loc: [facility] [place] [address] Phys: Neo Turner MD Acct: [id number] Dis Date: Status: DIS IN PH ONE #: [phone] Exam Date: 09/02/2017 1615 FAX #: [phone] Reason: PAIN IN RIGHT HIP EXAMS: CPT CODE: [id number] XR HIP W/PEL UNI 2+[place] [address] HISTORY: Right hip pain. COMPARISON: None available. 3 views of the right hip: Gamma nail within the right hip in good position with out evidence for loosening. No fracture. No AVN. Pelvic ring is intact on the single view. SI joint appear within normal limits. Mineralization and soft tissues are normal. IMPRESSION: Gamma nail in right hip in good position without loosening or fracture. Narrowed hip joint. No AVN. at 5816 Reported and signed by: Olga Monterroso M.D. CC: Carlos Claudio; Erin Motley se, MD; Neo Turner MD Technologist: RAMAN FAGAN RT(R) Trnscrd Date/Time/By: 09/02/2017 (6382) : By: [email or web address] Orig Pr int D/T: S: 09/02/2017 (8537) PAGE 1 Signed Report - XR CHEST 1 [id number] 04:16:00 FAX: Kaitlin Chi MD [phone] [place]: B St: DIS Name: SLOAN CESAR [facility] : [birth year] Age/S: 82/F [address] Unit #: [id number] Loc: [facility] [place] [address] Phys: Kaitlin Chi MD Acct: [id number] Dis Date: Status: DIS IN PHONE #: [phone] Exam Date: 09/02/2017 0410 FAX #: [phone] Reason: Altered Mental Status EXAMS: CPT CODE: [id number] XR CHEST 1 V 84295 HISTORY: Altered mental st atus Location: C3 COMPARISON:None FINDINGS: Aortic calcifications are present. Heart size is mildly prominent. No vascular congestion. The lungs are clear of focal consolidation. No effu berry, pneumothorax, or acute osseous abnormality. IMPRESSION: 1. No focal consolidation. No other acute abno rmalities. a t 0416 Reported and signed by: Jhoan Salazar MD CC: Kaitlin Chi MD Techn ologist: RT ELIZA(R); Leeanna Sandoval Trnscrd Date/Tony e/By: 09/02/2017 (0416) : By: [email or web address] Orig Print D/T: S: 09/02/2017 (0419) PAGE 1 Signed Report - CT HEAD/BRAIN W/O [id number] 04:09:00 Name: SLOAN SANCHEZ [facility] : 1935 Age/S: 82 / F [address] [facility]: [id number] Loc: [place] [address] Phys: Rosy Chi MD Acct: [id number] Di s Date: Status: DIS IN PHONE #: Exam Date: 09/02/2017 0350 FAX #: Reason: Altered Mental Status EXAMS: CPT CODE: [id number] CT HEAD/BRAIN W/O CONT 58617 EXAM: - CT HEAD/BRAIN W/O CONT Location code:C3 HISTORY: 82 years -old Female with Altered Mental Status TECHNIQUE: Axial CT images from the s kull base to the vertex without intravenous contrast. Coronal and sagitta l reformatted images were created from the data set. One or more of the following dose reduction techniques were used: Automated expos ure control, adjustment of the mA and/or kV according to patient size, and /or utilization of iterative reconstruction technique. DLP: 757 mGy-cm. COMPARISON: None FINDINGS: Intracranial: No abnormal brain parenchymal density. No evidence of acute infarcti on, intracranial hemorrhage, mass or mass effect, or abnormal extra-axial fluid collection. The ventricular system and sulci are mildly pr ominent compatible cerebral volume loss. The density in the larger dural sinuses is grossly normal. Bones: There is n o evidence of acute displaced calvarial fracture. Sinuses: The vis ualized portions of the paranasal sinuses of significant opacification.The mastoid air cells are clear. Orbits/Soft Tissues: The visualized orbits show no significant abnormalities. The visualized soft tissues are unremarkable. IMPRESSION: 1. Cerebral volume loss and microvascular chronic ischemic changes. No intracranial hemo rrhage. No acute intracranial abnormality. at 0403 Reported and sig lenora by: Jhoan Salazar MD PAGE 1 Signed Report (CONTINUED) Name: SLOAN SANCHEZ [facility] : 1935 Age/S: 82 / F [address] [facility] Unit #: [id number] Loc: [place] [address] Phys: Kaitlin Chi MD Acct: [id number] Dis Date: Status: DIS IN PHONE #: [phone] Exam Date: 09/02/2017 0350 FAX #: [phone] Reason: Altered Mental Status EXAMS: CPT CODE: [id number] CT HEAD/BRAIN W/O CONT 67119 < Continued> CC: Kaitlin Chi MD Technologist:RT ROB CTDI: DLP: Trnscb Date/Time: 09/02/2017 (408) [email or web address] Orig Print D/T: S: 09/02/2017 (041) PAGE [address] BRAIN [place] [id number] [place] [address] Patient Name: SLOAN SANCHEZ MR #: [id number] : 1935 Age/Sex: 82/F Req #: [id number] Adm Physician: LAYO MCHUGH MD Ordered by: LOUIE DE SOUZA MANAGER [employer] Report #: [id number] Location: [facility] Room/Bed: [place] [address] Procedure: [id number] CT/CT BRAIN WO Exam Date: 07/05/17 Exam Time: 1320 REPORT STATUS: Signed EXAMINATION: Head CT HISTORY: Altered mental stat us, evaluate for intracranial bleed COMPARISON: Head CT on 04/06/2017 TECHNIQ UE: Multidetector axial images were obtained without contrast from the sondra en magnum to the vertex . The images were reconstructed using brain and bone a lgorithms. Thin section brain images were reformatted into coronal and sagitt al planes. Intravenous contrast: None. Motion/streaking artifact limits the evaluation of the skull base and posterior cranial fossa. FINDINGS: Parenchyma: 1. Unchanged mild chronic microvascular ischemic changes.. 2. No mass or hemorrhage. No CT evidence of acute territorial vascular insult. Extra-axial spaces:No abnormal density. No extra-axial fluid collections Brain volume: Age-appropriate moderate generalized volume l oss. Ventricles: No hydrocephalus or displacement. Arteries: No density suggestive of thrombus. Dural sinuses: No abnormal density. Extra-axial spaces: No abnormal density. Foramen magnum: No mass, C hiari malformation, or basilar invagination. Sella: No obvious mass. Paranasal/mastoid sinuses: Minimal mucosal inflammatory thickening of the partially visualized paranasal sinuses. Skull/Scalp: No lytic or blastic lesions. No fractures. IMPRESSION: 1. No intracranial hemorrhage. 2. Stable mild chronic microvascular ischemic changes. Signed by: Dr. Riky Bush M.D. on 07/05/2017 1:50 PM Dictated By: RIKY BUSH MD Elect ronically Signed By: RIKY BUSH MD on 07/05/17 1353 Transcribed By: CECIL on 07/05/17 1354 COPY TO: LOUIE DE SOUZA MANAGER [employer] CHEST 2 VIEWS [facility] [address], [place] [address] Patient Name: SLOAN SANCHEZ MR #: [id number] : Age/Sex: 82/F Req #: [id number] Adm Physician: Ordered by: LOUIE DE SOUZA MANAGER [employer] Report #: [id number] Location: ER Room/Bed: Procedure: [id number] DX/CHEST 2 VIEWS Exam Date: Exam Time: 1030 REPORT STATUS: Signed PROCEDURE: Frontal and lateral views of the chest. COMPARISON: Portable chest 04/06/2017. INDICATIONS: SOB FINDINGS: Lines/tubes: N one. Lungs: Bilateral perihilar opacifications. Low lung volumes are prese nt bilaterally. No parenchymal mass. Pleura: There is no pleural effus ion or pneumothorax. Heart and mediastinum: The heart and the mediastinum are normal. Atherosclerotic calcifications. Bones: No acute bony abno rmality. Degenerative changes of the thoracic spine. IMPRESSION: Bilateral perihilar opacifications may represent pulmonary edema. Dictated by: Jammie Goddard M.D. on 07/05/2017 at 11:30 Electronically approved by: Jammie Goddard M.D. on 07/05/2017 at 11:30 Dictated By: JAMMIE GODDARD MD 1130 Transcribed By: DAWIT on 07/05/17 1130 COPY TO: LOUIE DE SOUZA MANAGER [employer] CHEST SINGLE (PORTABLE) [facility] [address], [place] [address] Patient Name: SLOAN SANCHEZ MR #: [id number] : 1935 Age/Sex: 82/F Req #: [id number] Adm Physician: Ordered by: JENNIFER SHINE MD Report #: [id number] Location: ER Room/Bed: Procedure: [id number] DX/CHEST SINGLE (PORTABLE) E xam Date: 04/06/17 Exam Time: 1345 REPORT STATU S: Signed PROCEDURE: A single AP view of the chest. COMPARISON: [facility], DX, CHEST XRAY LINE PLACEMENT, 06/20/2016, 18:33. IN DICATIONS: REACTION TO MEDICATION FINDINGS: Lines/tubes: None. Lungs: The lungs are well inflated and clear. There is no evidence of pn eumonia or pulmonary edema. Pleura: There is no pleural effusion or pneum othorax. Heart and mediastinum: The heart and the mediastinum are unremar kable. Ossification of the aortic arch. Bones: No acute bony abnormali ty. IMPRESSION: 1. No acute cardiopulmonary disease. Luis Schaefer M.D. Dictated by: Luis Schaefer M.D. on at 14:25 Electronically approved by: Luis Schaefer M.D. on 03/14 at 14:25 Dictated By: AUNDREA SCHAEFER MD, MD Electronica lly Signed By: AUNDREA SCHAEFER MD, MD on 04/06/17 1425 Transcribed By: DAWIT on 0 04/06/17 1425 COPY TO: JENNIFER SHINE MD CT BRAIN [place] [address] Patient Name: SLOAN SANCHEZ MR #: [id number] : Age/Sex: 82/F Req #: [id number] Adm Physician: Ordered by: JENNIFER SHINE MD Report #: [id number] Location: ER Room/Be d: Procedure: [id number] CT/CT BRAIN WO Exam Date: Exam Time: REPORT STATUS: Signed EXAMINATION: Head CT HISTORY: Altered mental status, unresponsive COMPARISON: Head CT on 06/18/2016 TECHNIQUE: Multidetector axial images were obtained without con trast from the foramen magnum to the vertex . The images were reconstructed us ing brain and bone algorithms. Thin section brain images were reformatted int o coronal and sagittal planes. Intravenous contrast: None. Motion/streaki ng artifact limits the evaluation of the skull base and posterior cranial odilia a. FINDINGS: Parenchyma: 1. Unchanged mild chronic microvascu lar ischemic changes. 2. No mass or hemorrhage. No CT evidence of acute pina torial vascular insult. Extra-axial spaces:No abnormal density. No extra-axial fluid collections Brain volume: Mild generalized brain v olume loss Ventricles: No hydrocephalus or displacement. Arteri es: No density suggestive of thrombus. Dural sinuses: No abnormal densit y. Extra-axial spaces: No abnormal density. Foramen magnum: No m ass, Chiari malformation, or basilar invagination. Sella: No obvious mas s. Paranasal/mastoid sinuses: Minimal mucosal inflammatory thickening o f the partially visualized maxillary sinuses Skull/Scalp: No lytic or blastic lesions. No fractures. IMPRESSION: 1. No acute intracranial hemorrhage or cortical infarct. 2. Unchanged mild chronic microvascular isch emic changes. 3. Stable mild generalized brain volume loss. Signed by: Elisabeth Bush M.D. on 04/06/2017 2:30 PM Dictated By: RIKY BUSH MD El ectronically Signed By: RIKY BUSH MD on 04/06/17 1430 Transcribed By: CECIL on 04/06/17 1430 COPY TO: JENNIFER SHINE MD
--- NOTE | 2019-03-01 14:46 | NUR ---
Spoke to Dr. Garcia, order received for home health and provider services. Spoke to Francheska (daughter), states her mother has services with [facility] in the AM but [facility] approving for more services in the afternoon. Order for home health sent to another company of daughter's choice, [employer], [phone], who also has provider services if needed
[2019-03-01] MEDS ORDERED: FENTANYL CITRATE/PF 100MCG/2 ML INJ ONE (14:53)
[2019-03-01 16:33] VITALS: BP 149/65
[2019-03-01] MEDS: METOPROLOL TARTRATE 25 MG TAB PO SCH (17:16)
[2019-03-01] MEDS: LACTATED RINGER'S 1,000 ML IV SCH (17:16)
--- NOTE | 2019-03-01 19:00 | NUR ---
Received patient awake, not in distress, abdominal binder in place, dressing to the abdomen dry and intact, call light within easy reach, bed alarm activated, will continue to monitor closely
[2019-03-01 20:42] VITALS: BP 138/60
[2019-03-01 21:00] VITALS: BP 138/60
--- NOTE | 2019-03-01 22:59 | NUR ---
patient is anxious and agitated, trying to get up, bed alarm in place. Called daughter Francheska, called Dr. Krysta Garcia, updated patient wants to take her Lorazepam pill, with orders. Lorazepam given as ordered, will continue to monitor patient
[2019-03-01] MEDS ORDERED: LORAZEPAM 0.5 MG TAB PO PRN (23:00)
[2019-03-02 00:44] VITALS: BP 147/63
[2019-03-02 04:00] VITALS: BP 181/75
[2019-03-02] MEDS: LACTATED RINGER'S 1,000 ML IV SCH (05:28)
[2019-03-02] MEDS: CEFAZOLIN SOD 1 GM/NS 50ML 50 ML IV SCH ×2 (05:28→11:15)
[2019-03-02 06:55] VITALS: BP 147/67
--- NOTE | 2019-03-02 07:18 | NUR ---
Patient is resting in bed, no complaints at this time, will continue to monitor accordingly
[2019-03-02 07:35] LABS: BASOPHILS % 0.3 % (0.0-1.0); HEMATOCRIT 35.2 % (34.2-44.1); HEMOGLOBIN 11.8 g/dL (12.0-16.0); LYMPHOCYTES # (AUTO) 2.2 (1.0-3.2); LYMPHOCYTES % 22.1 % (18.0-39.1); MEAN CORPUSCULAR HGB CONC 33.5 g/dL (31-35); MEAN CORPUSCULAR VOLUME 89.6 fL (81-99); MONOCYTES # (AUTO) 0.8 (0.2-0.8); NEUTROPHILS # (AUTO) 6.8 (2.1-6.9); NEUTROPHILS % 69.3 % (38.7-80.0); PLATELET COUNT 145 x10e3/uL (140-360); RED BLOOD COUNT 3.93 x10e6/uL (3.6-5.1); RED CELL DISTRIBUTION WIDTH 12.4 % (11.7-14.4)
--- NOTE | 2019-03-02 07:47 | NUR ---
Received patient and a/ox3, no distress, Abdullahi in place as received patient this morning, patient with elevated BP and medicated for pain, call light within reach, bed alarms in place, will monitor.
[2019-03-02 08:19] VITALS: BP 163/70
--- NOTE | 2019-03-02 08:30 | NUR ---
Abdullahi Cath D/C'd at this time, due to void, OOB and ambulated, sat up on recliner, patient presenting with some confusion, redirected, tolerated meds and VSS, pains well managed, will monitor
[2019-03-02] MEDS: METOPROLOL TARTRATE 25 MG TAB PO SCH (08:36)
[2019-03-02 08:59] VITALS: BP 163/70
[2019-03-02] MEDS ORDERED: HYDROCHLOROTHIAZIDE 25 MG TAB PO SCH (09:00)
[2019-03-02] MEDS ORDERED: NON-FORMULARY MEDICATION (Hydrochlorothiazide 12.5 MG) PO SCH (09:00)
--- NOTE | 2019-03-02 11:36 | NUR ---
Rounds performed, patient to DC home today
[2019-03-02 12:07] VITALS: BP 181/77
--- NOTE | 2019-03-02 13:23 | NUR ---
Patient voided post removal of Abdullahi cath. Rounds by Dr. Nima Rosenthal and discharged patient
== END 2019-03-02 14:10 | disposition home health service (06) ==
LOC: OR 05:25 → PACU V 10:05 → MED/SURG 11:03
PROVIDERS: ADMIT Surgery; ATTEND Surgery
DX: K43.2 Incisional hernia without obstruction or gangrene (principal); E11.9 Type 2 diabetes mellitus without complications; G20 Parkinson's disease; M19.90 Unspecified osteoarthritis, unspecified site; Z91.041 Radiographic dye allergy status; F03.90 Unspecified dementia, unspecified severity, without behavioral disturbance, psychotic disturbance, mood disturbance, and anxiety; G47.33 Obstructive sleep apnea (adult) (pediatric); I10 Essential (primary) hypertension; J45.909 Unspecified asthma, uncomplicated; I25.10 Atherosclerotic heart disease of native coronary artery without angina pectoris
CPT/HCPCS: 36415 ×2; 49250; 49566; 49568; 82948 ×2; 85025; 93005; C1781; C9290; G0378 ×2; J0131; J0461; J0690 ×2; J1100; J1170; J1885; J2405; J2710; J3010; J7121 ×2; J2001

== ENCOUNTER 2021-05-06 13:48 | Inpatient (IN) | payer MEDICARE, OTHER ==
[~2021-05-06] VITALS: Ht 160 cm; Wt 69.4 kg
[2021-05-06 16:38] LABS: BASOPHILS # (AUTO) 0.1 (0.0-0.1); BASOPHILS % 1.1 % (0.0-1.0); EOSINOPHILS # (AUTO) 0.2 (0.0-0.4); EOSINOPHILS % 2.3 % (0.0-6.0); HEMOGLOBIN 10.3 g/dL (12.0-16.0); LYMPHOCYTES # (AUTO) 2.2 (1.0-3.2); LYMPHOCYTES % 28.5 % (18.0-39.1); MEAN CORPUSCULAR HEMOGLOBIN 28.3 pg (28-32); MEAN CORPUSCULAR HGB CONC 30.3 g/dL (31-35); MEAN CORPUSCULAR VOLUME 93.4 fL (81-99); MONOCYTES # (AUTO) 0.6 (0.2-0.8); NEUTROPHILS # (AUTO) 4.6 (2.1-6.9); NEUTROPHILS % 59.1 % (38.7-80.0); PLATELET COUNT 241 x10e3/uL (140-360); RED BLOOD COUNT 3.64 x10e6/uL (3.6-5.1); RED CELL DISTRIBUTION WIDTH 14.5 % (11.7-14.4)
[2021-05-06 16:42] LABS: INR 0.98; PROTHROMBIN TIME 13.7 seconds (11.9-14.5)
[2021-05-06 16:43] LABS: PARTIAL THROMBOPLASTIN TIME 27.9 seconds (23.8-35.5)
[2021-05-06 16:49] LABS: ALBUMIN 3.3 g/dL (3.5-5.0); ALBUMIN/GLOBULIN RATIO 0.8 (0.8-2.0); ALKALINE PHOSPHATASE 134 IU/L (40-150); ANION GAP 14.2 mmol/L (8-16); BLOOD UREA NITROGEN 14 mg/dL (7-26); BUN/CREATININE RATIO 17 (6-25); CALCIUM 9.1 mg/dL (8.4-10.2); CARBON DIOXIDE 24 mmol/L (22-29); CHLORIDE 107 mmol/L (98-107); CREATININE, SERUM 0.82 mg/dL (0.57-1.11); EST GLOMERULAR FILTRATION RATE 66 ML/MIN (60-); GLUCOSE 87 mg/dL (74-118); SODIUM 140 mmol/L (136-145)
[2021-05-06 16:50] LABS: ALANINE AMINOTRANSFERASE < 6 IU/L (0-55)
[2021-05-06 16:51] LABS: POTASSIUM 5.2 mmol/L (3.5-5.1)
[2021-05-06] MEDS ORDERED: SODIUM CHLORIDE 0.9% 1000ML 1,000 ML IV SCH (17:00)
[2021-05-06] MEDS: ONDANSETRON HCL INJ 2MG/ML 2ML 2 MG/ML VIAL IV PRN ×2 (17:38→21:59)
[2021-05-06] MEDS: Morphine 2mg Syringe 2 MG/ML SYR IV PRN ×2 (17:38→21:59)
[2021-05-06 19:35] VITALS: BP 155/64
[2021-05-06 20:00] VITALS: BP 155/64
[2021-05-06] MEDS ORDERED: CELEBREX100 MG PO (20:26)
[2021-05-06] MEDS ORDERED: AMLODIPINE BESY10 MG PO (20:26)
[2021-05-06] MEDS ORDERED: BENZONATATE200 MG PO (20:26)
[2021-05-06] MEDS ORDERED: ATORVASTATIN CA10 MG PO (20:26)
[2021-05-06] MEDS ORDERED: MONTELUKAST SOD10 MG PO (20:29)
[2021-05-06] MEDS ORDERED: PANTOPRAZOLE SO40 MG PO (20:29)
[2021-05-06] MEDS ORDERED: MIRTAZAPINE7.5 MG PO (20:29)
[2021-05-06] MEDS ORDERED: LEVOTHYROXINE25 MCG (20:29)
[2021-05-06] MEDS ORDERED: LEXAPRO20 MG PO (20:29)
[2021-05-07] VITALS (7 sets, daily range): BP systolic 111–147; BP diastolic 46–65
[2021-05-07] MEDS ORDERED: PHENAZOPYRIDINE HCL 100 MG TAB PO PRN (00:45)
[2021-05-07] MEDS ORDERED: DOCUSATE SODIUM 100 MG CAP PO PRN (00:45)
[2021-05-07] MEDS ORDERED: POTASSIUM CHLORIDE 20 MEQ TAB CR PO PRN (00:45)
[2021-05-07] MEDS ORDERED: ONDANSETRON HCL INJ 2MG/ML 2ML 2 MG/ML VIAL IV PRN (00:45)
[2021-05-07] MEDS ORDERED: LORAZEPAM 0.5 MG TAB PO PRN (00:45)
[2021-05-07] MEDS ORDERED: ALBUTEROL/IPRATROPIUM 3 ML NEB NEB PRN (00:45)
[2021-05-07] MEDS ORDERED: LIDOCAINE 4% PATCH TP PRN (00:45)
[2021-05-07] MEDS ORDERED: SIMETHICONE 80 MG CHEW PO PRN (00:45)
[2021-05-07] MEDS ORDERED: BENZONATATE 100 MG CAP PO PRN (00:45)
[2021-05-07] MEDS ORDERED: CHLORASEPTIC SPRAY 177 ML BTL MM PRN (00:45)
[2021-05-07] MEDS ORDERED: DEXTROSE 50% SYRINGE 50 ML IV PRN (00:45)
[2021-05-07] MEDS ORDERED: ACETAMINOPHEN 325 MG TAB PO PRN (00:45)
[2021-05-07] MEDS ORDERED: HYDRALAZINE HCL 20 MG/ML VIAL IV PRN (00:45)
[2021-05-07] MEDS ORDERED: DIPHENHYDRAMINE HCL 25 MG CAP PO PRN (00:45)
[2021-05-07] MEDS: DEXTROSE 5%/0.9% SOD CHL 1,000 ML IV SCH ×2 (01:51→17:36)
[2021-05-07] MEDS: HYDROCODONE/APAP 5MG-325MG TAB PO PRN (05:52)
[2021-05-07 06:03] LABS: BASOPHILS # (AUTO) 0.1 (0.0-0.1); BASOPHILS % 0.9 % (0.0-1.0); EOSINOPHILS # (AUTO) 0.2 (0.0-0.4); HEMATOCRIT 33.1 % (34.2-44.1); LYMPHOCYTES # (AUTO) 2.2 (1.0-3.2); LYMPHOCYTES % 30.3 % (18.0-39.1); MEAN CORPUSCULAR HGB CONC 30.2 g/dL (31-35); MEAN CORPUSCULAR VOLUME 92.7 fL (81-99); MONOCYTES # (AUTO) 0.6 (0.2-0.8); MONOCYTES % 8.4 % (4.4-11.3); NEUTROPHILS # (AUTO) 4.2 (2.1-6.9); NEUTROPHILS % 56.6 % (38.7-80.0); PLATELET COUNT 225 x10e3/uL (140-360); RED BLOOD COUNT 3.57 x10e6/uL (3.6-5.1); RED CELL DISTRIBUTION WIDTH 14.4 % (11.7-14.4)
[2021-05-07 06:18] LABS: ANION GAP 12.9 mmol/L (8-16); CALCIUM 8.3 mg/dL (8.4-10.2); CREATININE, SERUM 0.92 mg/dL (0.57-1.11); POTASSIUM 4.9 mmol/L (3.5-5.1)
[2021-05-07] MEDS: SALMETEROL/FLUTICASONE 250/50 INH SCH ×2 (08:08→19:35)
[2021-05-07] MEDS: PRAMIPEXOLE DIHYDROCHLORIDE 1 MG TAB PO SCH ×3 (09:00→20:15)
[2021-05-07] MEDS ORDERED: PANTOPRAZOLE SOD 40 MG TABEC PO SCH (09:00)
[2021-05-07] MEDS ORDERED: AMLODIPINE BESYLATE 10 MG TAB PO SCH (09:00)
[2021-05-07] MEDS: CARBIDOPA/LEVODOPA 25/100 TAB PO SCH ×3 (09:00→20:15)
[2021-05-07] MEDS: METOPROLOL TARTRATE 25 MG TAB PO SCH ×2 (09:00→17:41)
[2021-05-07] MEDS: LOSARTAN POTASSIUM 100 MG TAB PO SCH (09:00)
[2021-05-07] MEDS: LEVETIRACETAM 500 MG TAB PO SCH ×2 (09:00→17:40)
[2021-05-07] MEDS ORDERED: ROPIVACAINE 246.25 MG, EPINEPHRINE HCL 1:1000 1ML 0.5 MG, CLONIDINE HCL 0.08 MG, KETORO... INJ ONE ×5 (11:45)
[2021-05-07] MEDS ORDERED: Vancomycin IV 1,000 MG ONE (11:58)
[2021-05-07] MEDS ORDERED: TRANEXAMIC ACID 1,000 MG/10 ML ML ONE (12:04)
[2021-05-07] MEDS ORDERED: ONDANSETRON HCL INJ 2MG/ML 2ML 2 MG/ML VIAL ONE (12:57)
[2021-05-07] MEDS ORDERED: PROPOFOL IV EMULSION 10 MG/ML 20 ML VIAL ONE (12:57)
[2021-05-07] MEDS ORDERED: POVIDONE IODINE 0.05% 0.05 % ML PO ONE (12:57)
[2021-05-07] MEDS ORDERED: SEVOFLURANE INHAL SOLN 250 ML PEN BTL ONE (12:57)
[2021-05-07] MEDS ORDERED: LIDOCAINE HCL 2% LOCAL INJ 5 ML SDV VIAL INJ ONE (12:57)
[2021-05-07] MEDS ORDERED: FENTANYL CITRATE/PF 100MCG/2 ML INJ ONE (13:23)
[2021-05-07 16:48] LABS: BASOPHILS # (AUTO) 0.1 (0.0-0.1); BASOPHILS % 0.6 % (0.0-1.0); EOSINOPHILS # (AUTO) 0.2 (0.0-0.4); EOSINOPHILS % 0.8 % (0.0-6.0); HEMATOCRIT 32.2 % (34.2-44.1); HEMOGLOBIN 9.9 g/dL (12.0-16.0); LYMPHOCYTES # (AUTO) 3.9 (1.0-3.2); MEAN CORPUSCULAR HEMOGLOBIN 28.8 pg (28-32); MEAN CORPUSCULAR HGB CONC 30.7 g/dL (31-35); MEAN CORPUSCULAR VOLUME 93.6 fL (81-99); MONOCYTES # (AUTO) 0.9 (0.2-0.8); MONOCYTES % 4.6 % (4.4-11.3); NEUTROPHILS # (AUTO) 14.1 (2.1-6.9); NEUTROPHILS % 73.1 % (38.7-80.0); PLATELET COUNT 239 x10e3/uL (140-360); RED BLOOD COUNT 3.44 x10e6/uL (3.6-5.1); RED CELL DISTRIBUTION WIDTH 14.5 % (11.7-14.4)
[2021-05-07] MEDS ORDERED: Vancomycin IV 1 GM in SODIUM CHLORIDE 0.9% 250ML 250 ML IV ONE (17:00)
[2021-05-07 17:05] LABS: ALBUMIN 2.9 g/dL (3.5-5.0); ALBUMIN/GLOBULIN RATIO 0.9 (0.8-2.0); ANION GAP 16.8 mmol/L (8-16); CREATININE, SERUM 0.93 mg/dL (0.57-1.11); POTASSIUM 4.8 mmol/L (3.5-5.1)
[2021-05-07] MEDS: PANTOPRAZOLE SOD 40 MG TABEC PO SCH (17:38)
[2021-05-07] MEDS: ASPIRIN 81 MG CHEW TAB PO SCH (17:38)
[2021-05-07] MEDS: ESCITALOPRAM OXALATE 10 MG TAB PO SCH (17:40)
[2021-05-07] MEDS: MONTELUKAST SODIUM 10 MG TAB PO SCH (17:40)
[2021-05-07] MEDS: MEMANTINE 10 MG TAB PO SCH (17:40)
[2021-05-07] MEDS: POTASSIUM CHLORIDE 10MEQ EA PO SCH (17:40)
[2021-05-07] MEDS: FUROSEMIDE 40 MG TAB PO SCH (17:40)
[2021-05-07] MEDS: MIRTAZAPINE 15 MG TAB PO SCH (20:15)
[2021-05-07] MEDS: DONEPEZIL HCL 5 MG TAB PO SCH (20:15)
[2021-05-07] MEDS: ATORVASTATIN 10 MG TAB PO SCH (20:15)
[2021-05-07] MEDS: Morphine 2mg Syringe 2 MG/ML SYR IV PRN (23:31)
[2021-05-08] VITALS (8 sets, daily range): BP systolic 107–145; BP diastolic 40–54
[2021-05-08] MEDS: DEXTROSE 5%/0.9% SOD CHL 1,000 ML IV SCH ×3 (03:01→21:28)
[2021-05-08 06:01] LABS: BASOPHILS # (AUTO) 0.1 (0.0-0.1); BASOPHILS % 0.5 % (0.0-1.0); EOSINOPHILS % 0.3 % (0.0-6.0); HEMATOCRIT 25.2 % (34.2-44.1); HEMOGLOBIN 7.7 g/dL (12.0-16.0); LYMPHOCYTES # (AUTO) 1.6 (1.0-3.2); LYMPHOCYTES % 17.4 % (18.0-39.1); MEAN CORPUSCULAR HEMOGLOBIN 29.1 pg (28-32); MEAN CORPUSCULAR HGB CONC 30.6 g/dL (31-35); MEAN CORPUSCULAR VOLUME 95.1 fL (81-99); MONOCYTES # (AUTO) 0.8 (0.2-0.8); MONOCYTES % 8.1 % (4.4-11.3); NEUTROPHILS # (AUTO) 6.9 (2.1-6.9); NEUTROPHILS % 73.4 % (38.7-80.0); PLATELET COUNT 185 x10e3/uL (140-360); RED BLOOD COUNT 2.65 x10e6/uL (3.6-5.1); RED CELL DISTRIBUTION WIDTH 14.5 % (11.7-14.4)
[2021-05-08 06:20] LABS: ANION GAP 12.3 mmol/L (8-16); CALCIUM 7.7 mg/dL (8.4-10.2); CREATININE, SERUM 0.82 mg/dL (0.57-1.11); POTASSIUM 5.3 mmol/L (3.5-5.1)
[2021-05-08] MEDS: SALMETEROL/FLUTICASONE 250/50 INH SCH ×3 (06:48→19:51)
[2021-05-08] MEDS: LOSARTAN POTASSIUM 100 MG TAB PO SCH (07:59)
[2021-05-08] MEDS: METOPROLOL TARTRATE 25 MG TAB PO SCH ×2 (07:59→17:00)
[2021-05-08] MEDS: MEMANTINE 10 MG TAB PO SCH (08:55)
[2021-05-08] MEDS: POTASSIUM CHLORIDE 10MEQ EA PO SCH (08:55)
[2021-05-08] MEDS: FUROSEMIDE 40 MG TAB PO SCH (08:55)
[2021-05-08] MEDS: ESCITALOPRAM OXALATE 10 MG TAB PO SCH (08:55)
[2021-05-08] MEDS: ASPIRIN 81 MG CHEW TAB PO SCH (08:55)
[2021-05-08] MEDS: LEVETIRACETAM 500 MG TAB PO SCH ×2 (08:55→17:00)
[2021-05-08] MEDS: PANTOPRAZOLE SOD 40 MG TABEC PO SCH (08:55)
[2021-05-08] MEDS: PRAMIPEXOLE DIHYDROCHLORIDE 1 MG TAB PO SCH ×3 (08:55→21:25)
[2021-05-08] MEDS: MONTELUKAST SODIUM 10 MG TAB PO SCH (08:56)
[2021-05-08] MEDS: AMLODIPINE BESYLATE 5 MG TAB PO SCH (08:56)
[2021-05-08] MEDS: CARBIDOPA/LEVODOPA 25/100 TAB PO SCH ×3 (08:56→21:25)
[2021-05-08] MEDS: HYDROCODONE/APAP 5MG-325MG TAB PO PRN ×2 (10:30→17:00)
[2021-05-08] MEDS ORDERED: FUROSEMIDE INJ 10 MG/ML 2 ML VIAL IV ONE (12:30)
[2021-05-08] MEDS: ENOXAPARIN SOD INJ 40 MG/0.4 ML SYR SC SCH (17:00)
[2021-05-08] MEDS: DONEPEZIL HCL 5 MG TAB PO SCH (21:19)
[2021-05-08] MEDS: ATORVASTATIN 10 MG TAB PO SCH (21:19)
[2021-05-08] MEDS: MIRTAZAPINE 15 MG TAB PO SCH (21:25)
[2021-05-08] MEDS: Morphine 2mg Syringe 2 MG/ML SYR IV PRN (21:35)
[2021-05-09] VITALS (8 sets, daily range): BP systolic 108–134; BP diastolic 39–53
[2021-05-09] MEDS: HYDROCODONE/APAP 5MG-325MG TAB PO PRN ×2 (05:14→22:02)
[2021-05-09] MEDS: METOPROLOL TARTRATE 25 MG TAB PO SCH (07:46)
[2021-05-09 08:10] LABS: BASOPHILS # (AUTO) 0.1 (0.0-0.1); BASOPHILS % 0.6 % (0.0-1.0); EOSINOPHILS # (AUTO) 0.1 (0.0-0.4); EOSINOPHILS % 1.2 % (0.0-6.0); LYMPHOCYTES # (AUTO) 1.4 (1.0-3.2); LYMPHOCYTES % 16.5 % (18.0-39.1); MEAN CORPUSCULAR HEMOGLOBIN 28.3 pg (28-32); MEAN CORPUSCULAR HGB CONC 30.5 g/dL (31-35); MEAN CORPUSCULAR VOLUME 92.8 fL (81-99); MONOCYTES # (AUTO) 0.7 (0.2-0.8); MONOCYTES % 8.4 % (4.4-11.3); NEUTROPHILS % 72.6 % (38.7-80.0); PLATELET COUNT 143 x10e3/uL (140-360); RED BLOOD COUNT 2.37 x10e6/uL (3.6-5.1); RED CELL DISTRIBUTION WIDTH 14.7 % (11.7-14.4)
[2021-05-09 08:12] LABS: HEMOGLOBIN 6.7 g/dL (12.0-16.0)
[2021-05-09 08:21] LABS: ANION GAP 13.5 mmol/L (8-16); CALCIUM 7.7 mg/dL (8.4-10.2); CREATININE, SERUM 0.73 mg/dL (0.57-1.11); POTASSIUM 3.5 mmol/L (3.5-5.1)
[2021-05-09] MEDS: SALMETEROL/FLUTICASONE 250/50 INH SCH ×2 (08:28→19:48)
[2021-05-09] MEDS ORDERED: SODIUM CHLORIDE 0.9% 250ML 250 ML IV ONE (08:30)
[2021-05-09] MEDS: PANTOPRAZOLE SOD 40 MG TABEC PO SCH (09:33)
[2021-05-09] MEDS: ASPIRIN 81 MG CHEW TAB PO SCH (09:33)
[2021-05-09] MEDS: PRAMIPEXOLE DIHYDROCHLORIDE 1 MG TAB PO SCH ×3 (09:33→21:00)
[2021-05-09] MEDS: AMLODIPINE BESYLATE 5 MG TAB PO SCH (09:33)
[2021-05-09] MEDS: MEMANTINE 10 MG TAB PO SCH (09:33)
[2021-05-09] MEDS: ESCITALOPRAM OXALATE 10 MG TAB PO SCH (09:33)
[2021-05-09] MEDS: FUROSEMIDE 40 MG TAB PO SCH (09:33)
[2021-05-09] MEDS: MONTELUKAST SODIUM 10 MG TAB PO SCH (09:33)
[2021-05-09] MEDS: POTASSIUM CHLORIDE 10MEQ EA PO SCH (09:33)
[2021-05-09] MEDS: LEVETIRACETAM 500 MG TAB PO SCH ×2 (09:33→17:02)
[2021-05-09] MEDS: CARBIDOPA/LEVODOPA 25/100 TAB PO SCH ×3 (09:33→21:00)
[2021-05-09] MEDS: Morphine 2mg Syringe 2 MG/ML SYR IV PRN ×2 (10:07→18:14)
[2021-05-09] MEDS: MEGACE 400MG/ 10ML CUP PO SCH (14:07)
[2021-05-09] MEDS: FUROSEMIDE INJ 10 MG/ML 4 ML VIAL IV SCH ×2 (14:07→21:00)
[2021-05-09] MEDS: ENOXAPARIN SOD INJ 40 MG/0.4 ML SYR SC SCH (17:02)
[2021-05-09] MEDS: MELATONIN 5 MG TABLET PO PRN (20:55)
[2021-05-09] MEDS: ATORVASTATIN 10 MG TAB PO SCH (21:00)
[2021-05-09] MEDS: DONEPEZIL HCL 5 MG TAB PO SCH (21:00)
[2021-05-09] MEDS: DEXTROSE 5%/0.9% SOD CHL 1,000 ML IV SCH (21:00)
[2021-05-09] MEDS: MIRTAZAPINE 15 MG TAB PO SCH (21:00)
[2021-05-10] VITALS (8 sets, daily range): BP systolic 109–154; BP diastolic 42–89
[2021-05-10 05:22] LABS: BASOPHILS # (AUTO) 0.1 (0.0-0.1); BASOPHILS % 0.6 % (0.0-1.0); EOSINOPHILS # (AUTO) 0.1 (0.0-0.4); EOSINOPHILS % 1.6 % (0.0-6.0); HEMATOCRIT 28.3 % (34.2-44.1); HEMOGLOBIN 9.3 g/dL (12.0-16.0); LYMPHOCYTES # (AUTO) 1.4 (1.0-3.2); MEAN CORPUSCULAR HEMOGLOBIN 29.1 pg (28-32); MEAN CORPUSCULAR HGB CONC 32.9 g/dL (31-35); MEAN CORPUSCULAR VOLUME 88.4 fL (81-99); MONOCYTES # (AUTO) 0.6 (0.2-0.8); MONOCYTES % 7.1 % (4.4-11.3); NEUTROPHILS # (AUTO) 6.3 (2.1-6.9); NEUTROPHILS % 73.9 % (38.7-80.0); PLATELET COUNT 144 x10e3/uL (140-360)
[2021-05-10 05:45] LABS: ANION GAP 13.7 mmol/L (8-16); CALCIUM 7.3 mg/dL (8.4-10.2); CREATININE, SERUM 0.73 mg/dL (0.57-1.11)
[2021-05-10 05:49] LABS: POTASSIUM 2.7 mmol/L (3.5-5.1)
[2021-05-10] MEDS: SALMETEROL/FLUTICASONE 250/50 INH SCH ×2 (07:21→17:00)
[2021-05-10] MEDS: PANTOPRAZOLE SOD 40 MG TABEC PO SCH (08:30)
[2021-05-10] MEDS: FUROSEMIDE INJ 10 MG/ML 4 ML VIAL IV SCH (09:03)
[2021-05-10] MEDS: ASPIRIN 81 MG CHEW TAB PO SCH (09:03)
[2021-05-10] MEDS: LEVETIRACETAM 500 MG TAB PO SCH ×2 (09:03→17:20)
[2021-05-10] MEDS: ESCITALOPRAM OXALATE 10 MG TAB PO SCH (09:03)
[2021-05-10] MEDS: MEGACE 400MG/ 10ML CUP PO SCH (09:03)
[2021-05-10] MEDS: MONTELUKAST SODIUM 10 MG TAB PO SCH (09:04)
[2021-05-10] MEDS: AMLODIPINE BESYLATE 5 MG TAB PO SCH (09:04)
[2021-05-10] MEDS: MEMANTINE 10 MG TAB PO SCH (09:04)
[2021-05-10] MEDS: PRAMIPEXOLE DIHYDROCHLORIDE 1 MG TAB PO SCH ×3 (09:04→21:26)
[2021-05-10] MEDS: CARBIDOPA/LEVODOPA 25/100 TAB PO SCH ×3 (09:04→21:26)
[2021-05-10] MEDS: Morphine 2mg Syringe 2 MG/ML SYR IV PRN (12:05)
[2021-05-10] MEDS ORDERED: POTASSIUM CHLORIDE 20 MEQ TAB CR PO ONE (12:45)
[2021-05-10] MEDS ORDERED: ONDANSETRON HCL 4 MG ORAL DISINTEGRATING TAB PO PRN (14:30)
[2021-05-10] MEDS: ENOXAPARIN SOD INJ 40 MG/0.4 ML SYR SC SCH (17:20)
[2021-05-10] MEDS: DONEPEZIL HCL 5 MG TAB PO SCH (21:26)
[2021-05-10] MEDS: ATORVASTATIN 10 MG TAB PO SCH (21:27)
[2021-05-10] MEDS: MIRTAZAPINE 15 MG TAB PO SCH (21:27)
[2021-05-10] MEDS: MELATONIN 5 MG TABLET PO PRN (21:49)
[2021-05-10] MEDS: HYDROCODONE/APAP 5MG-325MG TAB PO PRN (21:49)
[2021-05-11 00:30] VITALS: BP 118/57
[2021-05-11] MEDS: DEXTROSE 5%/0.9% SOD CHL 1,000 ML IV SCH ×2 (02:29→12:52)
[2021-05-11 04:05] VITALS: BP 133/56
[2021-05-11] MEDS: SALMETEROL/FLUTICASONE 250/50 INH SCH ×2 (07:22→20:35)
[2021-05-11 08:05] VITALS: BP 110/64
[2021-05-11 08:15] VITALS: BP 110/64
[2021-05-11] MEDS: MEGACE 400MG/ 10ML CUP PO SCH (09:01)
[2021-05-11] MEDS: LEVETIRACETAM 500 MG TAB PO SCH ×2 (09:01→16:51)
[2021-05-11] MEDS: ESCITALOPRAM OXALATE 10 MG TAB PO SCH (09:01)
[2021-05-11] MEDS: PANTOPRAZOLE SOD 40 MG TABEC PO SCH (09:01)
[2021-05-11] MEDS: ASPIRIN 81 MG CHEW TAB PO SCH (09:01)
[2021-05-11] MEDS: AMLODIPINE BESYLATE 5 MG TAB PO SCH (09:02)
[2021-05-11] MEDS: MEMANTINE 10 MG TAB PO SCH (09:02)
[2021-05-11] MEDS: MONTELUKAST SODIUM 10 MG TAB PO SCH (09:02)
[2021-05-11] MEDS: CARBIDOPA/LEVODOPA 25/100 TAB PO SCH ×2 (09:02→16:51)
[2021-05-11] MEDS: PRAMIPEXOLE DIHYDROCHLORIDE 1 MG TAB PO SCH ×2 (09:02→16:51)
[2021-05-11 11:04] VITALS: BP 123/82
[2021-05-11] MEDS: Morphine 2mg Syringe 2 MG/ML SYR IV PRN (12:52)
[2021-05-11 15:05] VITALS: BP 121/55
[2021-05-11 15:58] LABS: ALBUMIN 2.2 g/dL (3.5-5.0); ALBUMIN/GLOBULIN RATIO 0.6 (0.8-2.0); ANION GAP 12.9 mmol/L (8-16); CREATININE, SERUM 0.7 mg/dL (0.57-1.11); POTASSIUM 3.9 mmol/L (3.5-5.1)
[2021-05-11] MEDS ORDERED: FUROSEMIDE INJ 10 MG/ML 2 ML VIAL IV ONE (16:30)
[2021-05-11] MEDS: ENOXAPARIN SOD INJ 40 MG/0.4 ML SYR SC SCH (16:51)
== END 2021-05-11 20:58 | DRG 467 ==
LOC: ER 14:12 → ERHOLD 16:51 → MED/SURG3 19:35
PROVIDERS: ADMIT Internal Medicine; ATTEND Internal Medicine
PROC: 0SPS0JZ Removal of Synthetic Substitute from Left Hip Joint, Femoral Surface, Open Approach (ICD-10-PCS; 2021-05-07)
PROC: 0SRS0JZ Replacement of Left Hip Joint, Femoral Surface with Synthetic Substitute, Open Approach (ICD-10-PCS; principal; 2021-05-07 12:00)
PROC: 30233N1 Transfusion of Nonautologous Red Blood Cells into Peripheral Vein, Percutaneous Approach (ICD-10-PCS; 2021-05-09)
DX: M97.02XA Periprosthetic fracture around internal prosthetic left hip joint, initial encounter (principal); D62 Acute posthemorrhagic anemia; I10 Essential (primary) hypertension; R56.9 Unspecified convulsions; F03.90 Unspecified dementia, unspecified severity, without behavioral disturbance, psychotic disturbance, mood disturbance, and anxiety; E78.5 Hyperlipidemia, unspecified; I25.10 Atherosclerotic heart disease of native coronary artery without angina pectoris; E11.9 Type 2 diabetes mellitus without complications; Z91.041 Radiographic dye allergy status; Z82.49 Family history of ischemic heart disease and other diseases of the circulatory system; Z83.3 Family history of diabetes mellitus; E78.00 Pure hypercholesterolemia, unspecified; Z20.822 Contact with and (suspected) exposure to COVID-19
CPT/HCPCS: 36415; 71045; 72170; 76000; 80048; 80053; 82948; 85025; 85610; 85730; 86850; 86900; 86920; 87071; 87075; 87102; 87205; 87206; 93005; 93306; 94799; 96361; 97139; 99284; C1713; C1776; J0171; J1650; J1885; J1940; J2001; J2270; J2405; J2795; J3010; J3370; J7030; J7042; J7050; P9016; U0002